=== PATIENT | male | born 1930 | race Caucasian/White ===

== ENCOUNTER 2016-05-12 12:59 | Inpatient (IN) | payer OTHER ==
[~2016-05-12] VITALS: Ht 177.8 cm; Wt 110.4 kg
[~2016-05-12 12:59] MED LIST: ACCUPRIL40 MG PO; AMLODIPINE BESYL5 MG PO; ASPIR 8181 M1 PO; ASPIR-LOW81 MG PO; ATORVASTATIN CA20 MG PO; AVODART0.5 MG PO; BACTRIM,SEPT1 TABLET PO; CARDURA2 M1 PO; CARVEDILOL12.5 MG PO; CARVEDILOL6.25 MG PO; CEFTIN500 MG PO; CELEXA10 MG PO; CITALOPRAM HBR10 MG PO; COREG6.25 M1 PO; DOXAZOSIN MESYLA2 MG PO; DULCOLAX10 MG PR; DUONEB 2.5-0.5 M3 ML IH; FERROUS SULFAT325 MG PO; FLOMAX0.4 MG PO; GLIPIZIDE5 MG PO; HYDROCHLOROTHIA25 MG PO; K-TAB10 MEQ PO; LASIX20 MG PO; LEVAQUIN500 MG PO; LIPITOR20 MG PO; LO-DOSE ASPIRIN81 M1 PO; METFORMIN HCL1000 MG PO; MILK OF MAGN PO; NOVOLOG 10100 UNITS/ SC; PROCRIT40000 UNI1 SC; QUINAPRIL HCL40 MG PO; SALINE MIST45 ML BOTH NARES; SILVADENE20 GM TP; TAMSULOSIN HCL0.4 MG PO; TYLENOL REGULA325 MG PO
[2016-05-12 14:23] LABS: HEMATOCRIT 31.8 % (38.0-50.0); MCH 32.3 PG (29.0-34.0); MCHC 32.1 G/DL (30.0-36.0); MCV 100.6 FL (86-99); MEAN PLAT.VOLUME 8.3 uM^3 (9.0-12.4); PLATELET COUNT 370 K/uL (156-360); RBC DIS.WIDTH-SD 55.3 % (39-53); RED BLOOD COUNT 3.16 M/uL (4.00-5.50); WHITE BLOOD COUNT 12.7 K/uL (4.1-10.2)
[2016-05-12 14:34] LABS: CARBON DIOXIDE (BICARBONATE) 15.9 MEQ/L (20-31)
[2016-05-12 14:41] LABS: CHLORIDE 112 mEq/L (99-109); POTASSIUM 5.9 mEq/L (3.7-5.4); SODIUM 135 mEq/L (136-147)
[2016-05-12 14:44] LABS: ANION GAP 9 MEQ/L (2-14)
[2016-05-12 14:46] LABS: GFR ESTIMATE (CALCULATED) 11 mL/min/
[2016-05-12 14:47] LABS: GLUCOSE 209 mg/dL (70-99); UREA NITROGEN (BUN) 94 mg/dL (9-23)
[2016-05-12] MEDS ORDERED: LANTUS 3 M100 UNITS1 SC (15:02)
[2016-05-12] MEDS ORDERED: BIOFREEZE TP (15:07)
[2016-05-12] MEDS ORDERED: TRIPLE PASTE TP (15:10)
[2016-05-12] MEDS ORDERED: NYSTOP60 GM TP ×2 (15:13→15:14)
[2016-05-12] MEDS ORDERED: COREG12.5 M1 PO (15:17)
[2016-05-12 16:22] LABS: ADD MIUA? YES; BILIRUBIN NEGATIVE; BLOOD MODERATE; COLOR YELLOW ((YELLOW)); GLUCOSE (STRIP) >=500; KETONES NEGATIVE; LEUKOCYTES MODERATE; NITRITE POSITIVE; PROTEIN (STRIP) 100; SPECIFIC GRAVITY 1.006 (1.000-1.030); UROBILINOGEN 0.2 MG/DL (0.2-1.0)
[2016-05-12 16:36] LABS: EPITHELIAL CELLS 1+ /HPF; MUCUS NONE SEEN /LPF; RED BLOOD CELLS 20-30 /HPF (0-5); UCUL ADDED? YES; WHITE BLOOD CELLS TNTC /HPF (0-5); WHITE BLOOD CELLS CLUMP MANY /HPF (0-5)
[2016-05-12 16:37] LABS: POINT-OF-CARE METER ID UU13113702
[2016-05-12 16:56] LABS: BACTERIA 2+ /HPF; CASTS NONE SEEN /LPF; CRYSTALS NONE SEEN
[2016-05-12 21:12] LABS: POINT-OF-CARE METER ID UU13113725
[2016-05-12 22:45] VITALS: BP 147/81
[2016-05-13 03:11] VITALS: BP 141/77
[2016-05-13 06:44] LABS: EOSINOPHIL (%) 0.8 % (0-5); EOSINOPHIL COUNT 0.1 K/uL (0-0.3); HEMATOCRIT 29.9 % (38.0-50.0); IMMATURE GRANULOCYTE (%) 0.3 % (0.0-0.7); INSTRUMENT ABS NEUTROPHIL CT 7.6 K/uL; LYMPHOCYTE COUNT 2.9 K/uL (1.0-2.8); MCH 31.7 PG (29.0-34.0); MCHC 31.8 G/DL (30.0-36.0); MCV 99.7 FL (86-99); MEAN PLAT.VOLUME 8.7 uM^3 (9.0-12.4); MONOCYTE (%) 11.8 % (3-12); MONOCYTE COUNT 1.4 K/uL (0-0.8); NEUTROPHIL (%) 62.7 % (45-76); NEUTROPHIL COUNT 7.6 K/uL (1.8-6.4); PLATELET COUNT 362 K/uL (156-360); RBC DIS.WIDTH-CV 15.1 % (11.8-14.6); RBC DIS.WIDTH-SD 54.4 % (39-53)
[2016-05-13 07:05] LABS: ANION GAP 9 MEQ/L (2-14); CHLORIDE 114 MEQ/L (99-109); GFR ESTIMATE (CALCULATED) 11 mL/min/; POTASSIUM 5.2 MEQ/L (3.7-5.4); SAMPLE HEMOLYSIS CHECK 0; SAMPLE ICTERIC CHECK 0; SAMPLE LIPEMIA CHECK 0; SODIUM 138 MEQ/L (136-147); UREA NITROGEN (BUN) 85 mg/dL (9-23); URIC ACID 5.4 mg/dL (3.1-9.2)
[2016-05-13 07:12] LABS: GLUCOSE 85 mg/dL (70-99)
[2016-05-13 07:20] VITALS: BP 154/73
[2016-05-13 10:42] VITALS: BP 130/72
[2016-05-13 19:07] VITALS: BP 137/85
[2016-05-13 21:21] LABS: POINT-OF-CARE METER ID UU13113725
[2016-05-13 23:07] VITALS: BP 142/79
[2016-05-14 03:24] VITALS: BP 129/77
[2016-05-14 07:23] VITALS: BP 143/71
[2016-05-14 11:38] LABS: POINT-OF-CARE METER ID UU13113725
[2016-05-14 12:14] LABS: ANION GAP 10 MEQ/L (2-14); CHLORIDE 109 MEQ/L (99-109); GFR ESTIMATE (CALCULATED) 13 mL/min/; SAMPLE HEMOLYSIS CHECK 0; SAMPLE ICTERIC CHECK 0; SAMPLE LIPEMIA CHECK 0; SODIUM 139 MEQ/L (136-147); UREA NITROGEN (BUN) 81 mg/dL (9-23)
[2016-05-14 12:15] LABS: GLUCOSE 176 mg/dL (70-99); POTASSIUM 3.9 MEQ/L (3.7-5.4)
[2016-05-14 12:47] VITALS: BP 132/63
[2016-05-14 16:11] LABS: POINT-OF-CARE METER ID UU13113725
[2016-05-14 16:16] VITALS: BP 152/69
[2016-05-14 19:17] VITALS: BP 138/84
[2016-05-14 21:22] LABS: POINT-OF-CARE METER ID UU13113725
[2016-05-14 23:02] VITALS: BP 130/60
[2016-05-15 03:35] VITALS: BP 141/72
[2016-05-15 06:43] LABS: ANION GAP 11 MEQ/L (2-14); CHLORIDE 111 MEQ/L (99-109); GFR ESTIMATE (CALCULATED) 12 mL/min/; GLUCOSE 122 mg/dL (70-99); POTASSIUM 3.7 MEQ/L (3.7-5.4); SAMPLE HEMOLYSIS CHECK 0; SAMPLE ICTERIC CHECK 0; SAMPLE LIPEMIA CHECK 0; SODIUM 142 MEQ/L (136-147); UREA NITROGEN (BUN) 82 mg/dL (9-23)
[2016-05-15 06:56] LABS: POINT-OF-CARE METER ID UU13113725
[2016-05-15 07:39] VITALS: BP 138/69
[2016-05-15 12:03] LABS: POINT-OF-CARE METER ID UU13113725
[2016-05-15 13:23] LABS: HBSG INDEX 0.28
[2016-05-15 13:24] LABS: ANTI-HEPATITIS A VIRUS (IGM) Nonreactive; HPCA INDEX 0.32
[2016-05-15 13:25] LABS: ANTI-HEPATITIS B CORE (IGM) Nonreactive; HBC IgM INDEX 0.05
[2016-05-15 15:56] LABS: POINT-OF-CARE METER ID UU13113725
[2016-05-15 17:06] VITALS: BP 129/67
[2016-05-15 18:58] VITALS: BP 144/78
[2016-05-15 20:49] LABS: POINT-OF-CARE METER ID UU13113725
[2016-05-15 23:09] VITALS: BP 138/70
[2016-05-16 03:57] VITALS: BP 147/65
[2016-05-16 06:30] LABS: POINT-OF-CARE METER ID UU13113725
[2016-05-16 07:13] LABS: EOSINOPHIL (%) 3.3 % (0-5); EOSINOPHIL COUNT 0.4 K/uL (0-0.3); IMMATURE GRANULOCYTE (%) 0.2 % (0.0-0.7); INSTRUMENT ABS NEUTROPHIL CT 6.7 K/uL; LYMPHOCYTE COUNT 3.1 K/uL (1.0-2.8); MCH 31.7 PG (29.0-34.0); MCHC 31.8 G/DL (30.0-36.0); MCV 99.6 FL (86-99); MEAN PLAT.VOLUME 9.1 uM^3 (9.0-12.4); NEUTROPHIL (%) 59.5 % (45-76); NEUTROPHIL COUNT 6.7 K/uL (1.8-6.4); PLATELET COUNT 288 K/uL (156-360); RBC DIS.WIDTH-CV 14.9 % (11.8-14.6); RBC DIS.WIDTH-SD 54.4 % (39-53); RED BLOOD COUNT 2.81 M/uL (4.00-5.50); WHITE BLOOD COUNT 11.3 K/uL (4.1-10.2)
[2016-05-16 07:40] LABS: ANION GAP 10 MEQ/L (2-14); CHLORIDE 114 MEQ/L (99-109); GFR ESTIMATE (CALCULATED) 12 mL/min/; GLUCOSE 129 mg/dL (70-99); POTASSIUM 3.7 MEQ/L (3.7-5.4); SAMPLE HEMOLYSIS CHECK 0; SAMPLE ICTERIC CHECK 0; SAMPLE LIPEMIA CHECK 0; SODIUM 143 MEQ/L (136-147); UREA NITROGEN (BUN) 75 mg/dL (9-23)
[2016-05-16 08:30] VITALS: BP 160/72
[2016-05-16 11:24] LABS: POINT-OF-CARE METER ID UU13113725
[2016-05-16 16:45] LABS: POINT-OF-CARE METER ID UU13113725
[2016-05-16 16:50] VITALS: BP 156/72
[2016-05-16 19:45] VITALS: BP 144/73
[2016-05-16 23:31] VITALS: BP 131/66
[2016-05-17 03:21] VITALS: BP 139/60
[2016-05-17 06:25] LABS: ANION GAP 11 MEQ/L (2-14); CHLORIDE 113 MEQ/L (99-109); GFR ESTIMATE (CALCULATED) 13 mL/min/; GLUCOSE 132 mg/dL (70-99); POTASSIUM 3.4 MEQ/L (3.7-5.4); SAMPLE HEMOLYSIS CHECK 0; SAMPLE ICTERIC CHECK 0; SAMPLE LIPEMIA CHECK 0; SODIUM 141 MEQ/L (136-147); UREA NITROGEN (BUN) 75 mg/dL (9-23)
[2016-05-17 07:39] VITALS: BP 151/76
[2016-05-17 12:00] VITALS: BP 140/75
[2016-05-17 17:56] VITALS: BP 130/80
[2016-05-17 19:16] VITALS: BP 150/72
[2016-05-17 21:36] LABS: POINT-OF-CARE METER ID UU13113725
[2016-05-17 23:03] VITALS: BP 148/77
[2016-05-18] VITALS (7 sets, daily range): BP systolic 117–170; BP diastolic 65–84
[2016-05-18 06:57] LABS: EOSINOPHIL COUNT 0.4 K/uL (0-0.3); HEMATOCRIT 28.6 % (38.0-50.0); IMMATURE GRANULOCYTE (%) 0.3 % (0.0-0.7); INSTRUMENT ABS NEUTROPHIL CT 7.6 K/uL; LYMPHOCYTE COUNT 3.9 K/uL (1.0-2.8); MCHC 31.5 G/DL (30.0-36.0); MCV 101.8 FL (86-99); MEAN PLAT.VOLUME 9.2 uM^3 (9.0-12.4); MONOCYTE (%) 7.3 % (3-12); MONOCYTE COUNT 0.9 K/uL (0-0.8); NEUTROPHIL COUNT 7.6 K/uL (1.8-6.4); PLATELET COUNT 238 K/uL (156-360); RBC DIS.WIDTH-CV 14.8 % (11.8-14.6); RBC DIS.WIDTH-SD 55.5 % (39-53); RED BLOOD COUNT 2.81 M/uL (4.00-5.50); WHITE BLOOD COUNT 12.8 K/uL (4.1-10.2)
[2016-05-18 07:31] LABS: ANION GAP 9 MEQ/L (2-14); CHLORIDE 114 MEQ/L (99-109); GFR ESTIMATE (CALCULATED) 14 mL/min/; GLUCOSE 126 mg/dL (70-99); SAMPLE HEMOLYSIS CHECK 0; SAMPLE ICTERIC CHECK 0; SAMPLE LIPEMIA CHECK 0; SODIUM 144 MEQ/L (136-147); UREA NITROGEN (BUN) 79 mg/dL (9-23)
[2016-05-18 07:32] LABS: POTASSIUM 4.2 MEQ/L (3.7-5.4)
[2016-05-18 21:17] LABS: POINT-OF-CARE METER ID UU13113725
[2016-05-19 03:15] VITALS: BP 166/74
[2016-05-19 06:11] LABS: POINT-OF-CARE METER ID UU13113725
[2016-05-19 08:07] VITALS: BP 166/80
[2016-05-19 10:01] LABS: CHLORIDE 110 mEq/L (99-109); POTASSIUM 3.9 mEq/L (3.7-5.4); SODIUM 139 mEq/L (136-147)
[2016-05-19 10:04] LABS: ANION GAP 11 MEQ/L (2-14)
[2016-05-19 10:06] LABS: GFR ESTIMATE (CALCULATED) 14 mL/min/
[2016-05-19 10:07] LABS: UREA NITROGEN (BUN) 77 mg/dL (9-23)
[2016-05-19 10:09] LABS: GLUCOSE 244 mg/dL (70-99)
[2016-05-19 11:52] VITALS: BP 144/72
[2016-05-19 15:57] VITALS: BP 170/100
[2016-05-19 16:03] LABS: POINT-OF-CARE METER ID UU13113725
[2016-05-19 19:21] VITALS: BP 179/84
[2016-05-19 21:07] LABS: POINT-OF-CARE METER ID UU13113725
[2016-05-19 23:15] VITALS: BP 166/83
[2016-05-20 05:36] LABS: POINT-OF-CARE METER ID UU13113725
[2016-05-20 07:35] LABS: ANION GAP 8 MEQ/L (2-14); CHLORIDE 111 MEQ/L (99-109); GFR ESTIMATE (CALCULATED) 15 mL/min/; GLUCOSE 132 mg/dL (70-99); POTASSIUM 3.6 MEQ/L (3.7-5.4); SAMPLE HEMOLYSIS CHECK 0; SAMPLE ICTERIC CHECK 0; SAMPLE LIPEMIA CHECK 0; SODIUM 140 MEQ/L (136-147); UREA NITROGEN (BUN) 72 mg/dL (9-23)
[2016-05-20 08:42] VITALS: BP 143/81
[2016-05-20 12:04] VITALS: BP 152/79
[2016-05-20 16:15] VITALS: BP 158/87
[2016-05-20 19:48] VITALS: BP 179/84
[2016-05-20 23:12] VITALS: BP 179/69
[2016-05-21 03:43] VITALS: BP 129/72
[2016-05-21 07:26] VITALS: BP 145/68
[2016-05-21 07:27] LABS: ANION GAP 8 MEQ/L (2-14); CHLORIDE 112 MEQ/L (99-109); GFR ESTIMATE (CALCULATED) 15 mL/min/; GLUCOSE 145 mg/dL (70-99); POTASSIUM 3.6 MEQ/L (3.7-5.4); SAMPLE HEMOLYSIS CHECK 0; SAMPLE ICTERIC CHECK 0; SAMPLE LIPEMIA CHECK 0; SODIUM 141 MEQ/L (136-147); UREA NITROGEN (BUN) 73 mg/dL (9-23)
[2016-05-21 11:02] VITALS: BP 138/64
[2016-05-21] MEDS ORDERED: DOXYCYCLINE HY100 M3 PO (11:42)
[2016-05-21] MEDS ORDERED: CIPROFLOXACIN500 M1 PO (11:42)
[2016-05-21] MEDS ORDERED: APRESOLINE25 MG PO (11:43)
[2016-05-21] MEDS ORDERED: BICITRA SOLUTI473 ML PO (11:43)
[2016-05-21] MEDS ORDERED: NOVOLOG PE100 UNITS/ SC (11:44)
== END 2016-05-21 14:11 | DRG 683 ==
LOC: EME 12:59 → EDOF 15:19 → 5EAST 15:19
PROVIDERS: Emergency Medicine; Family Medicine; Internal Medicine Nephrology
DX: N17.9 Acute kidney failure, unspecified (principal); E87.4 Mixed disorder of acid-base balance; N39.0 Urinary tract infection, site not specified; C91.10 Chronic lymphocytic leukemia of B-cell type not having achieved remission; N13.8 Other obstructive and reflux uropathy; E87.5 Hyperkalemia; E11.22 Type 2 diabetes mellitus with diabetic chronic kidney disease; B95.62 Methicillin resistant Staphylococcus aureus infection as the cause of diseases classified elsewhere; I12.9 Hypertensive chronic kidney disease with stage 1 through stage 4 chronic kidney disease, or unspecified chronic kidney disease; B96.4 Proteus (mirabilis) (morganii) as the cause of diseases classified elsewhere; N13.30 Unspecified hydronephrosis; D63.1 Anemia in chronic kidney disease; N18.4 Chronic kidney disease, stage 4 (severe); E78.5 Hyperlipidemia, unspecified; N40.1 Benign prostatic hyperplasia with lower urinary tract symptoms; R33.9 Retention of urine, unspecified; N28.1 Cyst of kidney, acquired; M48.00 Spinal stenosis, site unspecified; R31.0 Gross hematuria; R26.2 Difficulty in walking, not elsewhere classified; R53.1 Weakness; Z86.73 Personal history of transient ischemic attack (TIA), and cerebral infarction without residual deficits; Z87.01 Personal history of pneumonia (recurrent); Z87.440 Personal history of urinary (tract) infections; Z87.891 Personal history of nicotine dependence
CPT/HCPCS: 71010; 71020; 76770; 80048; 80048 91; 80074; 81003; 82803; 82948; 83605; 83735; 83880; 84100; 84550; 85025; 85027; 87077; 87086; 87147; 87186; 93005; 94799; 97530 GP; 99281; 99285; J0692; J1815; J7050

== ENCOUNTER 2016-06-09 06:37 | Day surgery (SDC) | payer OTHER ==
[~2016-06-09] VITALS: Ht 170.2 cm; Wt 112.5 kg
[~2016-06-09 06:37] MED LIST changes: +APRESOLINE25 MG PO; +BICITRA SOLUTI473 ML PO; +BIOFREEZE TP; +CIPROFLOXACIN500 M1 PO; +COREG12.5 M1 PO; +DOXYCYCLINE HY100 M3 PO; +ERGOCALCIF50000 UNIT PO; +LANTUS 3 M100 UNITS1 SC; +LASIX80 MG PO; +NOVOLOG PE100 UNITS/ SC; +NYSTOP60 GM TP; +TRIPLE PASTE TP
[2016-06-09 07:35] LABS: POINT-OF-CARE METER ID UU13113696
== END 2016-06-09 10:45 | disposition home or self-care (01) ==
LOC: CATH 06:37
PROVIDERS: Surgery
PROC: B543ZZA Ultrasonography of Right Jugular Veins, Guidance (ICD-10-PCS; principal; 2016-06-09)
PROC: B2141ZZ Fluoroscopy of Right Heart using Low Osmolar Contrast (ICD-10-PCS; principal; 2016-06-09)
PROC: 02HV33Z Insertion of Infusion Device into Superior Vena Cava, Percutaneous Approach (ICD-10-PCS; principal; 2016-06-09)
DX: I12.0 Hypertensive chronic kidney disease with stage 5 chronic kidney disease or end stage renal disease (principal); N18.6 End stage renal disease; E11.22 Type 2 diabetes mellitus with diabetic chronic kidney disease; Z79.4 Long term (current) use of insulin; Z85.6 Personal history of leukemia
CPT/HCPCS: 82948; C1750; C1894; J0690; J1644; J2250; J3010; S0020

== ENCOUNTER 2016-07-18 11:13 | Day surgery (SDC) | payer OTHER ==
[2016-07-18 12:11] LABS: POINT-OF-CARE METER ID UU13113696
[2016-07-18 14:09] LABS: METH RESISTANT S AUREUS PCR POSITIVE (NEGATIVE)
[2016-07-18 14:13] LABS: PROBE CHECK PASS
== END 2016-07-18 14:33 | disposition home or self-care (01) ==
LOC: CATH 11:13
PROVIDERS: Surgery
DX: T82.514A Breakdown (mechanical) of infusion catheter, initial encounter (principal); N19 Unspecified kidney failure; Z99.2 Dependence on renal dialysis; Y84.8 Other medical procedures as the cause of abnormal reaction of the patient, or of later complication, without mention of misadventure at the time of the procedure
CPT/HCPCS: 82948; 87081; 87641; C1750; C1894; J0690; J1644; J2250; J3010; S0020

== ENCOUNTER → 2016-08-08 | Day surgery (SDC) | payer OTHER ==
[~2016-08-08] VITALS: Ht 177.8 cm; Wt 107.5 kg
[~2016-08-08] MED LIST changes: +DIALYVITE 3,001 EACH PO; +FERRIC CITRATE210 MG PO; +NYATA15 GM TP; +PROAMATINE5 MG PO; +VITAMIN D22000 UNIT PO; +[UNRECOGNIZED DRUG - OTHER] TP
[2016-08-08 06:15] LABS: HEMATOCRIT 30.7 % (38.0-50.0); MCH 31.8 PG (29.0-34.0); MCHC 32.2 G/DL (30.0-36.0); MCV 98.7 FL (86-99); MEAN PLAT.VOLUME 9.5 uM^3 (9.0-12.4); PLATELET COUNT 289 K/uL (156-360); RBC DIS.WIDTH-CV 16.5 % (11.8-14.6); RBC DIS.WIDTH-SD 59.7 % (39-53); RED BLOOD COUNT 3.11 M/uL (4.00-5.50)
[2016-08-08 06:41] LABS: ANION GAP 6 MEQ/L (2-14); CHLORIDE 89 MEQ/L (99-109); SAMPLE HEMOLYSIS CHECK 0; SAMPLE ICTERIC CHECK 0; SAMPLE LIPEMIA CHECK 0; SODIUM 133 MEQ/L (136-147)
[2016-08-08 06:47] LABS: GFR ESTIMATE (CALCULATED) 16 mL/min/; GLUCOSE 92 mg/dL (70-99); UREA NITROGEN (BUN) 25 mg/dL (9-23)
[2016-08-08 06:59] VITALS: BP 117/72
[2016-08-08 07:20] LABS: METH RESISTANT S AUREUS PCR POSITIVE (NEGATIVE)
[2016-08-08 07:22] LABS: PROBE CHECK PASS
== END ==
LOC: SDC 05:23
PROVIDERS: Surgery
PROC: 031809D Bypass Left Brachial Artery to Upper Arm Vein with Autologous Venous Tissue, Open Approach (ICD-10-PCS; principal; 2016-08-08)
PROC: 05BF0ZZ Excision of Left Cephalic Vein, Open Approach (ICD-10-PCS; principal; 2016-08-08)
DX: T82.41XA Breakdown (mechanical) of vascular dialysis catheter, initial encounter (principal); I12.0 Hypertensive chronic kidney disease with stage 5 chronic kidney disease or end stage renal disease; E11.22 Type 2 diabetes mellitus with diabetic chronic kidney disease; N18.6 End stage renal disease; Z99.2 Dependence on renal dialysis; Z79.4 Long term (current) use of insulin; Z99.3 Dependence on wheelchair
CPT/HCPCS: 80048; 85027; 87641; 93005; J0690; J1644; J2250; J2405; J2720; J3010

== ENCOUNTER → 2016-08-22 | Outpatient (CLI) | payer OTHER | END | disposition home or self-care (01) | LOC: EKG 13:00 | DX: I50.20 Unspecified systolic (congestive) heart failure (principal); I05.1 Rheumatic mitral insufficiency; I70.0 Atherosclerosis of aorta; I06.0 Rheumatic aortic stenosis; I77.819 Aortic ectasia, unspecified site; I31.3 Pericardial effusion (noninflammatory); I52 Other heart disorders in diseases classified elsewhere; Z98.890 Other specified postprocedural states | CPT/HCPCS: 93306 ==

== ENCOUNTER 2016-10-02 15:18 | Emergency (ER) | payer OTHER ==
[~2016-10-02] VITALS: Ht 177.8 cm; Wt 100.2 kg
[2016-10-02 16:02] LABS: HEMATOCRIT 28.7 % (38.0-50.0); MCHC 33.1 G/DL (30.0-36.0); MCV 96.6 FL (86-99); MEAN PLAT.VOLUME 8.9 uM^3 (9.0-12.4); PLATELET COUNT 243 K/uL (156-360); RBC DIS.WIDTH-CV 15.3 % (11.8-14.6); RBC DIS.WIDTH-SD 54.6 % (39-53); RED BLOOD COUNT 2.97 M/uL (4.00-5.50); WHITE BLOOD COUNT 17.5 K/uL (4.1-10.2)
[2016-10-02 16:09] LABS: INTER. NORMALIZED RATIO 1.3; PROTHROMBIN TIME 14.1 SEC (10.2-12.9)
[2016-10-02 16:11] LABS: CHLORIDE 96 mEq/L (99-109); POTASSIUM 4.2 mEq/L (3.7-5.4); PTT 53.9 SEC (25-37); SODIUM 134 mEq/L (136-147)
[2016-10-02 16:13] LABS: GLUCOSE 202 mg/dL (70-99)
[2016-10-02 16:14] LABS: ANION GAP 8 MEQ/L (2-14)
[2016-10-02 16:17] LABS: GFR ESTIMATE (CALCULATED) 13 mL/min/
[2016-10-02 16:18] LABS: UREA NITROGEN (BUN) 39 mg/dL (9-23)
[2016-10-02 16:22] LABS: TROP-I INTERPRETATION NEGATIVE; TROPONIN-I 0.11 ng/mL (0.0-0.30)
[2016-10-02 19:58] VITALS: BP 116/84
[2016-10-03] MEDS ORDERED: FUROSEMIDE80 MG PO (10:29)
[2016-10-03] MEDS ORDERED: OMEPRAZOLE20 M2 PO (10:30)
[2016-10-03] MEDS ORDERED: ZINC OXIDE56.7 GM TP (10:34)
== END 2016-10-02 21:00 ==
LOC: EME 15:18
PROVIDERS: Emergency Medicine
DX: I48.91 Unspecified atrial fibrillation (principal); E86.0 Dehydration; I12.9 Hypertensive chronic kidney disease with stage 1 through stage 4 chronic kidney disease, or unspecified chronic kidney disease; N18.9 Chronic kidney disease, unspecified; Z99.2 Dependence on renal dialysis; E11.9 Type 2 diabetes mellitus without complications; Z79.4 Long term (current) use of insulin; Z87.891 Personal history of nicotine dependence
CPT/HCPCS: 71020; 80048; 83605; 84484; 85027; 85610; 85730; 93005; 99281; 99285; J7030

== ENCOUNTER 2016-10-06 09:29 | Day surgery (SDC) | payer OTHER ==
[~2016-10-06] VITALS: Ht 170.2 cm; Wt 99.3 kg
[~2016-10-06 09:29] MED LIST changes: +FUROSEMIDE80 MG PO; +OMEPRAZOLE20 M2 PO; +ZINC OXIDE56.7 GM TP
[2016-10-06 10:13] VITALS: BP 142/71
[2016-10-06 10:27] LABS: HEMATOCRIT 30.2 % (38.0-50.0); MCH 32.3 PG (29.0-34.0); MCHC 33.1 G/DL (30.0-36.0); MCV 97.4 FL (86-99); MEAN PLAT.VOLUME 9.3 uM^3 (9.0-12.4); PLATELET COUNT 311 K/uL (156-360); RBC DIS.WIDTH-SD 53.2 % (39-53); WHITE BLOOD COUNT 19.6 K/uL (4.1-10.2)
[2016-10-06 10:42] LABS: ANION GAP 8 MEQ/L (2-14); CHLORIDE 93 MEQ/L (99-109); POTASSIUM 4.6 MEQ/L (3.7-5.4); SAMPLE HEMOLYSIS CHECK 0; SAMPLE ICTERIC CHECK 0; SAMPLE LIPEMIA CHECK 0; SODIUM 131 MEQ/L (136-147)
[2016-10-06 10:48] LABS: GFR ESTIMATE (CALCULATED) 9 mL/min/; GLUCOSE 101 mg/dL (70-99); UREA NITROGEN (BUN) 67 mg/dL (9-23)
[2016-10-06 11:13] LABS: METH RESISTANT S AUREUS PCR POSITIVE (NEGATIVE)
[2016-10-06 11:15] LABS: PROBE CHECK PASS
[2016-10-06 13:37] LABS: POINT-OF-CARE METER ID UU13113675
[2016-10-06 14:25] VITALS: BP 128/94
[2016-10-06 15:40] VITALS: BP 120/60
== END 2016-10-06 15:46 ==
LOC: SDC
PROVIDERS: Surgery
DX: I12.0 Hypertensive chronic kidney disease with stage 5 chronic kidney disease or end stage renal disease (principal); E11.22 Type 2 diabetes mellitus with diabetic chronic kidney disease; N18.6 End stage renal disease; Z99.2 Dependence on renal dialysis; E07.9 Disorder of thyroid, unspecified; C95.90 Leukemia, unspecified not having achieved remission; M48.00 Spinal stenosis, site unspecified; Z79.4 Long term (current) use of insulin; Z99.3 Dependence on wheelchair
CPT/HCPCS: 80048; 82948; 85027; 87641; 93005; J0131; J0690; J1644; J2405; J2720; J3010

== ENCOUNTER 2016-10-09 12:12 | Inpatient (IN) | payer OTHER ==
[~2016-10-09] VITALS: Ht 177.8 cm; Wt 96.4 kg
[2016-10-09 14:39] LABS: BASOPHIL COUNT 0.1 K/uL (0-0.1); EOSINOPHIL (%) 0.1 % (0-5); IMMATURE GRANULOCYTE COUNT 0.4 K/uL; INSTRUMENT ABS NEUTROPHIL CT 31.2 K/uL; LYMPHOCYTE COUNT 2.2 K/uL (1.0-2.8); MEAN PLAT.VOLUME 9.5 uM^3 (9.0-12.4); MONOCYTE COUNT 1.8 K/uL (0-0.8); NEUTROPHIL (%) 87.5 % (45-76); NEUTROPHIL COUNT 31.2 K/uL (1.8-6.4); PLATELET COUNT 230 K/uL (156-360)
[2016-10-09 14:50] LABS: ANION GAP 10 MEQ/L (2-14); CHLORIDE 93 MEQ/L (99-109); POTASSIUM 4.9 MEQ/L (3.7-5.4); SAMPLE HEMOLYSIS CHECK 0; SAMPLE ICTERIC CHECK 0; SAMPLE LIPEMIA CHECK 0; SODIUM 131 MEQ/L (136-147)
[2016-10-09 14:56] LABS: GFR ESTIMATE (CALCULATED) 8 mL/min/; GLUCOSE 237 mg/dL (70-99); UREA NITROGEN (BUN) 69 mg/dL (9-23)
[2016-10-09 15:32] LABS: HEMATOCRIT 26.1 % (38.0-50.0); MCH 33.2 PG (29.0-34.0); MCHC 33.3 G/DL (30.0-36.0); MCV 99.6 FL (86-99); RBC DIS.WIDTH-CV 15.2 % (11.8-14.6); RBC DIS.WIDTH-SD 54.6 % (39-53); RED BLOOD COUNT 2.62 M/uL (4.00-5.50); WHITE BLOOD COUNT 35.8 K/uL (4.1-10.2)
[2016-10-09 19:20] VITALS: BP 113/70
[2016-10-09 22:25] LABS: POINT-OF-CARE METER ID UU13113725
[2016-10-10 00:50] VITALS: BP 118/63
[2016-10-10 06:24] LABS: HEMATOCRIT 26.3 % (38.0-50.0); MCH 31.7 PG (29.0-34.0); MCHC 31.9 G/DL (30.0-36.0); MCV 99.2 FL (86-99); MEAN PLAT.VOLUME 9.4 uM^3 (9.0-12.4); PLATELET COUNT 213 K/uL (156-360); RBC DIS.WIDTH-CV 15.4 % (11.8-14.6); RBC DIS.WIDTH-SD 54.6 % (39-53); RED BLOOD COUNT 2.65 M/uL (4.00-5.50); WHITE BLOOD COUNT 21.7 K/uL (4.1-10.2)
[2016-10-10 06:53] LABS: ANION GAP 11 MEQ/L (2-14); CHLORIDE 96 MEQ/L (99-109); GFR ESTIMATE (CALCULATED) 11 mL/min/; GLUCOSE 180 mg/dL (70-99); POTASSIUM 4.4 MEQ/L (3.7-5.4); SAMPLE HEMOLYSIS CHECK 0; SAMPLE ICTERIC CHECK 0; SAMPLE LIPEMIA CHECK 0; SODIUM 136 MEQ/L (136-147); UREA NITROGEN (BUN) 51 mg/dL (9-23)
[2016-10-10 07:34] VITALS: BP 118/74
[2016-10-10 09:31] LABS: HBSG INDEX 0.14
[2016-10-10 09:32] LABS: HEPATITIS B SURFACE ANTIBODY Nonreactive
[2016-10-10 11:26] LABS: POINT-OF-CARE METER ID UU13113725
[2016-10-10 11:35] VITALS: BP 119/70
[2016-10-10 14:25] LABS: ADD MIUA? YES; BILIRUBIN NEGATIVE; BLOOD MODERATE; COLOR YELLOW ((YELLOW)); GLUCOSE (STRIP) >=500; KETONES NEGATIVE; LEUKOCYTES MODERATE; NITRITE NEGATIVE; PROTEIN (STRIP) 100; SPECIFIC GRAVITY 1.006 (1.000-1.030); UROBILINOGEN 0.2 MG/DL (0.2-1.0)
[2016-10-10 14:46] LABS: WHITE BLOOD CELLS TNTC /HPF (0-5)
[2016-10-10 15:19] VITALS: BP 100/60
[2016-10-10] MEDS ORDERED: MIDODRINE HCL2.5 MG PO (16:09)
[2016-10-10] MEDS ORDERED: MIDODRINE HCL10 MG PO ×2 (16:16)
[2016-10-10] MEDS ORDERED: SILVADENE20 GM TP (16:32)
[2016-10-10] MEDS ORDERED: NORCO 5/3251 TABLET PO ×2 (16:36→16:37)
[2016-10-10 19:25] VITALS: BP 120/85
[2016-10-10 21:21] LABS: POINT-OF-CARE METER ID UU13113725
[2016-10-10 23:38] VITALS: BP 107/63
[2016-10-11 03:20] VITALS: BP 140/80
[2016-10-11 07:56] LABS: HEMATOCRIT 25.8 % (38.0-50.0); MCH 31.9 PG (29.0-34.0); MCHC 32.6 G/DL (30.0-36.0); MCV 98.1 FL (86-99); MEAN PLAT.VOLUME 9.5 uM^3 (9.0-12.4); PLATELET COUNT 208 K/uL (156-360); RBC DIS.WIDTH-CV 15.5 % (11.8-14.6); RBC DIS.WIDTH-SD 53.3 % (39-53); RED BLOOD COUNT 2.63 M/uL (4.00-5.50); WHITE BLOOD COUNT 18.3 K/uL (4.1-10.2)
[2016-10-11 08:06] LABS: ANION GAP 10 MEQ/L (2-14); CHLORIDE 95 MEQ/L (99-109); POTASSIUM 4.3 MEQ/L (3.7-5.4); SAMPLE HEMOLYSIS CHECK 0; SAMPLE ICTERIC CHECK 0; SAMPLE LIPEMIA CHECK 0; SODIUM 132 MEQ/L (136-147)
[2016-10-11 08:12] LABS: GFR ESTIMATE (CALCULATED) 9 mL/min/; GLUCOSE 259 mg/dL (70-99); UREA NITROGEN (BUN) 66 mg/dL (9-23)
[2016-10-11 11:45] VITALS: BP 110/68
[2016-10-11 12:08] LABS: POINT-OF-CARE METER ID UU13113725
[2016-10-11 18:38] VITALS: BP 121/66
[2016-10-11 19:30] VITALS: BP 119/73
[2016-10-11 21:27] LABS: POINT-OF-CARE METER ID UU13113725
[2016-10-11 23:11] VITALS: BP 115/65
[2016-10-12 02:54] VITALS: BP 113/68
[2016-10-12 06:10] LABS: POINT-OF-CARE METER ID UU13113725
[2016-10-12 07:05] VITALS: BP 114/64
[2016-10-12 11:00] VITALS: BP 118/68
[2016-10-12 11:57] LABS: POINT-OF-CARE METER ID UU13113725
[2016-10-12 15:00] VITALS: BP 110/60
[2016-10-12 16:50] LABS: POINT-OF-CARE METER ID UU13113725
[2016-10-12 20:08] VITALS: BP 100/70
[2016-10-12 21:23] LABS: POINT-OF-CARE METER ID UU13113725
[2016-10-12 23:56] VITALS: BP 108/69
[2016-10-13] VITALS (7 sets, daily range): BP systolic 102–134; BP diastolic 68–75
[2016-10-13 06:10] LABS: POINT-OF-CARE METER ID UU13113725
[2016-10-13 12:27] LABS: POINT-OF-CARE METER ID UU13113725
[2016-10-13 16:57] LABS: POINT-OF-CARE METER ID UU13113725
[2016-10-13 21:26] LABS: POINT-OF-CARE METER ID UU13113725
[2016-10-14 04:34] VITALS: BP 110/68
[2016-10-14 05:52] LABS: POINT-OF-CARE METER ID UU13113725
[2016-10-14 08:29] LABS: EOSINOPHIL (%) 0.9 % (0-5); EOSINOPHIL COUNT 0.2 K/uL (0-0.3); HEMATOCRIT 25.9 % (38.0-50.0); IMMATURE GRANULOCYTE (%) 1.2 % (0.0-0.7); IMMATURE GRANULOCYTE COUNT 0.2 K/uL; INSTRUMENT ABS NEUTROPHIL CT 12.8 K/uL; MCH 32.1 PG (29.0-34.0); MCHC 32.8 G/DL (30.0-36.0); MCV 97.7 FL (86-99); MEAN PLAT.VOLUME 9.9 uM^3 (9.0-12.4); MONOCYTE (%) 5.5 % (3-12); MONOCYTE COUNT 0.9 K/uL (0-0.8); NEUTROPHIL (%) 74.7 % (45-76); NEUTROPHIL COUNT 12.8 K/uL (1.8-6.4); PLATELET COUNT 228 K/uL (156-360); RBC DIS.WIDTH-CV 15.9 % (11.8-14.6); RBC DIS.WIDTH-SD 54.9 % (39-53); RED BLOOD COUNT 2.65 M/uL (4.00-5.50); WHITE BLOOD COUNT 17.2 K/uL (4.1-10.2)
[2016-10-14 08:36] VITALS: BP 122/72
[2016-10-14 08:43] LABS: ANION GAP 12 MEQ/L (2-14); CHLORIDE 96 MEQ/L (99-109); POTASSIUM 3.8 MEQ/L (3.7-5.4); SAMPLE HEMOLYSIS CHECK 0; SAMPLE ICTERIC CHECK 0; SAMPLE LIPEMIA CHECK 0; SODIUM 132 MEQ/L (136-147)
[2016-10-14 08:55] LABS: GLUCOSE 249 mg/dL (70-99); UREA NITROGEN (BUN) 65 mg/dL (9-23)
[2016-10-14 09:02] LABS: GFR ESTIMATE (CALCULATED) 7 mL/min/
[2016-10-14 11:35] VITALS: BP 140/68
[2016-10-14 12:37] LABS: POINT-OF-CARE METER ID UU13113725
[2016-10-14 15:52] LABS: POINT-OF-CARE METER ID UU13113725
[2016-10-14 17:11] VITALS: BP 120/80
[2016-10-14 19:16] VITALS: BP 110/56
[2016-10-14 20:59] LABS: POINT-OF-CARE METER ID UU13113725
[2016-10-14 23:15] VITALS: BP 118/62
[2016-10-15 03:45] VITALS: BP 112/71
[2016-10-15 06:20] LABS: POINT-OF-CARE METER ID UU13113725
[2016-10-15 06:41] LABS: EOSINOPHIL (%) 0.9 % (0-5); EOSINOPHIL COUNT 0.2 K/uL (0-0.3); HEMATOCRIT 26.2 % (38.0-50.0); IMMATURE GRANULOCYTE (%) 0.8 % (0.0-0.7); IMMATURE GRANULOCYTE COUNT 0.1 K/uL; INSTRUMENT ABS NEUTROPHIL CT 11.3 K/uL; LYMPHOCYTE COUNT 3.9 K/uL (1.0-2.8); MCHC 33.2 G/DL (30.0-36.0); MCV 99.2 FL (86-99); MEAN PLAT.VOLUME 9.8 uM^3 (9.0-12.4); MONOCYTE (%) 6.5 % (3-12); MONOCYTE COUNT 1.1 K/uL (0-0.8); NEUTROPHIL (%) 68.2 % (45-76); NEUTROPHIL COUNT 11.3 K/uL (1.8-6.4); PLATELET COUNT 227 K/uL (156-360); RBC DIS.WIDTH-SD 56.7 % (39-53); RED BLOOD COUNT 2.64 M/uL (4.00-5.50); WHITE BLOOD COUNT 16.5 K/uL (4.1-10.2)
[2016-10-15 08:05] VITALS: BP 117/78
[2016-10-15 11:22] LABS: POINT-OF-CARE METER ID UU13113725
[2016-10-15] MEDS ORDERED: NORCO 5/3251 TABLET PO (12:59)
[2016-10-15 15:39] VITALS: BP 118/74
[2016-10-15 16:18] LABS: POINT-OF-CARE METER ID UU13113725
== END 2016-10-15 18:03 | DRG 871 ==
LOC: EME 12:12 → ENRESERV 13:26 → EDOF 13:54 → 5EAST 13:54 → ENRESERV 14:21 → 5EAST 18:25
PROVIDERS: Emergency Medicine; Family Medicine; Internal Medicine Nephrology
DX: A41.9 Sepsis, unspecified organism (principal); J18.9 Pneumonia, unspecified organism; N18.6 End stage renal disease; I12.0 Hypertensive chronic kidney disease with stage 5 chronic kidney disease or end stage renal disease; N39.0 Urinary tract infection, site not specified; C91.10 Chronic lymphocytic leukemia of B-cell type not having achieved remission; I48.91 Unspecified atrial fibrillation; R26.9 Unspecified abnormalities of gait and mobility; B96.5 Pseudomonas (aeruginosa) (mallei) (pseudomallei) as the cause of diseases classified elsewhere; M48.00 Spinal stenosis, site unspecified; D63.1 Anemia in chronic kidney disease; R00.0 Tachycardia, unspecified; N40.1 Benign prostatic hyperplasia with lower urinary tract symptoms; R33.8 Other retention of urine; E11.22 Type 2 diabetes mellitus with diabetic chronic kidney disease; I95.9 Hypotension, unspecified; G62.9 Polyneuropathy, unspecified; Z91.81 History of falling; Z87.891 Personal history of nicotine dependence; Z87.440 Personal history of urinary (tract) infections; Z99.2 Dependence on renal dialysis; Z79.4 Long term (current) use of insulin
CPT/HCPCS: 80048; 80069; 80202; 81003; 82948; 83605; 85025; 85025 91; 85027; 86706; 87040; 87077; 87086; 87186; 87340; 87641; 87801; 93005; 99281; 99284; J0131; J0690; J0881; J1644; J1815; J2405; J2543; J2720; J3010; J3370; J7050; P9047

== ENCOUNTER 2016-12-30 10:26 | Day surgery (SDC) | payer OTHER ==
[~2016-12-30] VITALS: Ht 177.8 cm; Wt 102.0 kg
[~2016-12-30 10:26] MED LIST changes: +CILOSTAZOL100 MG PO; +DIGOXIN125 MCG PO; +ELIQUIS2.5 MG PO; +KEFLEX500 MG PO; +MIDODRINE HCL10 MG PO; +MIDODRINE HCL2.5 MG PO; +NIZORAL 2% CREA15 GM TP; +NORCO 5/3251 TABLET PO; +PROTEIN LIQUID PO; -VITAMIN D22000 UNIT PO; +VITAMIN D32000 UNI1 PO; +ZINC TP; +[UNRECOGNIZED DRUG - OTHER] PO; +[UNRECOGNIZED DRUG - REMARK] PO; +[UNRECOGNIZED DRUG - SUPPLY] TP
[2016-12-30 11:25] LABS: POINT-OF-CARE METER ID UU14174212
[2016-12-30 11:27] VITALS: BP 163/73
[2016-12-30 12:17] LABS: METH RESISTANT S AUREUS PCR NEGATIVE (NEGATIVE)
[2016-12-30 12:18] LABS: PROBE CHECK PASS; SPECIMEN PROCESSING CONTROL PASS
[2016-12-30 13:30] LABS: POINT-OF-CARE METER ID UU13113675
[2016-12-30 13:55] VITALS: BP 135/76
== END 2016-12-30 15:37 ==
LOC: SDC 10:26
PROVIDERS: Podiatrist Foot & Ankle Surgery
PROC: 0Y6S0Z0 Detachment at Left 2nd Toe, Complete, Open Approach (ICD-10-PCS; principal; 2016-12-30)
DX: E11.621 Type 2 diabetes mellitus with foot ulcer (principal); E11.69 Type 2 diabetes mellitus with other specified complication; E11.42 Type 2 diabetes mellitus with diabetic polyneuropathy; M86.9 Osteomyelitis, unspecified; L03.032 Cellulitis of left toe; L97.529 Non-pressure chronic ulcer of other part of left foot with unspecified severity; I48.91 Unspecified atrial fibrillation; I12.0 Hypertensive chronic kidney disease with stage 5 chronic kidney disease or end stage renal disease; E11.22 Type 2 diabetes mellitus with diabetic chronic kidney disease; N18.6 End stage renal disease; Z99.2 Dependence on renal dialysis; Z79.01 Long term (current) use of anticoagulants
CPT/HCPCS: 82948; 87641; 88305; 88311; J3010; S0020

== ENCOUNTER 2017-01-24 13:08 | Observation (INO) | payer OTHER ==
[~2017-01-24] VITALS: Ht 177.8 cm; Wt 105.2 kg
[2017-01-24 13:33] LABS: EOSINOPHIL (%) 0.6 % (0-5); EOSINOPHIL COUNT 0.1 K/uL (0-0.3); IMMATURE GRANULOCYTE (%) 0.5 % (0.0-0.7); IMMATURE GRANULOCYTE COUNT 0.1 K/uL; INSTRUMENT ABS NEUTROPHIL CT 9.7 K/uL; LYMPHOCYTE COUNT 2.1 K/uL (1.0-2.8); MCH 31.9 PG (29.0-34.0); MCHC 32.9 G/DL (30.0-36.0); MCV 97.2 FL (86-99); MEAN PLAT.VOLUME 8.6 uM^3 (9.0-12.4); MONOCYTE (%) 9.7 % (3-12); MONOCYTE COUNT 1.3 K/uL (0-0.8); NEUTROPHIL (%) 73.4 % (45-76); NEUTROPHIL COUNT 9.7 K/uL (1.8-6.4); PLATELET COUNT 290 K/uL (156-360); RBC DIS.WIDTH-CV 16.3 % (11.8-14.6); RBC DIS.WIDTH-SD 58.4 % (39-53); WHITE BLOOD COUNT 13.2 K/uL (4.1-10.2)
[2017-01-24 13:39] LABS: INTER. NORMALIZED RATIO 1.3; PROTHROMBIN TIME 14.8 SEC (10.2-12.9)
[2017-01-24 13:42] LABS: CHLORIDE 97 mEq/L (99-109); POTASSIUM 4.2 mEq/L (3.7-5.4); PTT 33.3 SEC (25-37); SODIUM 132 mEq/L (136-147)
[2017-01-24 13:44] LABS: GLUCOSE 186 mg/dL (70-99)
[2017-01-24 13:46] LABS: ANION GAP 9 MEQ/L (2-14)
[2017-01-24 13:48] LABS: GFR ESTIMATE (CALCULATED) 12 mL/min/ (58.99-99999)
[2017-01-24 13:49] LABS: UREA NITROGEN (BUN) 58 mg/dL (9-23)
[2017-01-24 13:54] LABS: TROP-I INTERPRETATION NEGATIVE; TROPONIN-I 0.11 ng/mL (0.0-0.30)
[2017-01-24] MEDS ORDERED: BACID1 CAP PO (15:25)
[2017-01-24] MEDS ORDERED: NITROSTAT0.4 MG SL (15:27)
[2017-01-24] MEDS ORDERED: SILTUSSIN DM C473 ML PO (15:28)
[2017-01-24] MEDS ORDERED: DOLOTRANZ 2.5%1 EACH TP (15:31)
[2017-01-24 19:03] LABS: TROP-I INTERPRETATION NEGATIVE; TROPONIN-I 0.09 ng/mL (0.0-0.30)
[2017-01-24 19:35] VITALS: BP 140/65
[2017-01-24 22:14] LABS: POINT-OF-CARE METER ID UU13113831
[2017-01-24 23:59] VITALS: BP 178/80
[2017-01-25 04:00] VITALS: BP 124/74
[2017-01-25 04:30] LABS: TROP-I INTERPRETATION NEGATIVE; TROPONIN-I 0.09 ng/mL (0.0-0.30)
[2017-01-25 06:11] LABS: METH RESISTANT S AUREUS PCR NEGATIVE (NEGATIVE)
[2017-01-25 06:18] LABS: PROBE CHECK PASS; SPECIMEN PROCESSING CONTROL PASS
[2017-01-25 07:34] VITALS: BP 153/73
[2017-01-25 08:48] LABS: POINT-OF-CARE METER ID UU14162513
[2017-01-25 10:47] LABS: HBSG INDEX 0.21
[2017-01-25 11:41] VITALS: BP 147/77
[2017-01-25 12:24] LABS: POINT-OF-CARE METER ID UU14162513
[2017-01-25] MEDS ORDERED: CARVEDILOL12.5 MG PO (12:43)
[2017-01-25] MEDS ORDERED: CEPHALEXIN500 MG PO (12:44)
== END 2017-01-25 15:14 ==
LOC: EME 13:08 → EDOF 14:29 → ENRESERV 14:37 → EDOF 14:43 → ENRESERV 14:48 → 5WEST 19:19
PROVIDERS: Emergency Medicine; Family Medicine; Internal Medicine Nephrology
PROC: 5A1D70Z Performance of Urinary Filtration, Intermittent, Less than 6 Hours Per Day (ICD-10-PCS; principal; 2017-01-24)
DX: R07.89 Other chest pain (principal); I48.1 Persistent atrial fibrillation; I12.9 Hypertensive chronic kidney disease with stage 1 through stage 4 chronic kidney disease, or unspecified chronic kidney disease; E11.22 Type 2 diabetes mellitus with diabetic chronic kidney disease; N18.6 End stage renal disease; Z99.2 Dependence on renal dialysis; E11.40 Type 2 diabetes mellitus with diabetic neuropathy, unspecified; I42.9 Cardiomyopathy, unspecified; I35.0 Nonrheumatic aortic (valve) stenosis; Z74.01 Bed confinement status; E87.1 Hypo-osmolality and hyponatremia; C91.11 Chronic lymphocytic leukemia of B-cell type in remission; Z87.440 Personal history of urinary (tract) infections; Z87.01 Personal history of pneumonia (recurrent); Z79.4 Long term (current) use of insulin; Z79.01 Long term (current) use of anticoagulants
CPT/HCPCS: 71010; 80048; 82948; 84484; 85025; 85610; 85730; 87340; 87641; 93005; 99281; 99285; G0257; G0378

== ENCOUNTER 2017-02-25 04:49 | Inpatient (IN) | payer OTHER ==
[~2017-02-25] VITALS: Ht 177.8 cm; Wt 107.3 kg
[~2017-02-25 04:49] MED LIST changes: +BACID1 CAP PO; +CEPHALEXIN500 MG PO; +COUGH SYRU100 MG/5 M PO; +DOLOTRANZ 2.5%1 EACH TP; +NITROSTAT0.4 MG SL
[2017-02-25 05:29] LABS: BASE EXCESS 1.3 mEq/L (-3 to +3); BICARBONATE 28.3 mEq/L (22-26); CARBOXY HGB 1.1 % (0-5); COMMENTS - BLOOD GASES C+A+; DEVICE NIV; FI02 100 %; METHEMOGLOBIN 1.1 % (0-1.5); MODE SPONT; PCO2 55 mm Hg (35-45); PEEP 5 CM/H20; PO2 511 mm Hg (80-100); PRES. SUPPORT 18 CM/H2O; SITE RR; TOTAL RESP RATE 15 resp/min; pH 7.32 (7.35-7.45)
[2017-02-25 05:35] LABS: BASOPHIL (%) 0.2 % (0-1); EOSINOPHIL (%) 0.1 % (0-5); HEMATOCRIT 34.6 % (38.0-50.0); HEMOGLOBIN 11.4 G/DL (12.5-16.6); IMMATURE GRANULOCYTE (%) 0.9 % (0.0-0.7); LYMPHOCYTE (%) 9.7 % (15-42); LYMPHOCYTE COUNT 1.2 K/uL (1.0-2.8); MCH 32.7 PG (29.0-34.0); MCHC 32.9 G/DL (30.0-36.0); MCV 99.1 FL (86-99); MONOCYTE (%) 11.5 % (3-12); MONOCYTE COUNT 1.5 K/uL (0-0.8); NEUTROPHIL (%) 77.6 % (45-76); NEUTROPHIL COUNT 9.8 K/uL (1.8-6.4); PLATELET COUNT 278 K/uL (156-360); RBC DIS.WIDTH-CV 17.6 % (11.8-14.6); RBC DIS.WIDTH-SD 63.7 % (39-53); RED BLOOD COUNT 3.49 M/uL (4.00-5.50); WHITE BLOOD COUNT 12.7 K/uL (4.1-10.2)
[2017-02-25 05:47] LABS: CHLORIDE 96 mEq/L (99-109); SODIUM 132 mEq/L (136-147)
[2017-02-25 05:49] LABS: GLUCOSE 157 mg/dL (70-99)
[2017-02-25 05:51] LABS: INTER. NORMALIZED RATIO 1.2
[2017-02-25 05:52] LABS: CREATININE 5.8 mg/dL (0.6-1.3); GFR ESTIMATE (CALCULATED) 10 mL/min/ (58.99-99999)
[2017-02-25 05:53] LABS: UREA NITROGEN (BUN) 84 mg/dL (9-23)
[2017-02-25 05:54] LABS: PTT 31.3 SEC (25-37)
[2017-02-25 05:57] LABS: TROP-I INTERPRETATION NEGATIVE; TROPONIN-I 0.08 ng/mL (0.0-0.30)
[2017-02-25] MEDS ORDERED: COREG12.5 M1 PO ×2 (15:54→15:56)
[2017-02-25] MEDS ORDERED: DUONEB 2.5-0.5 M3 ML AEROSOL (16:06)
[2017-02-25 17:35] VITALS: BP 168/84
[2017-02-25 19:33] VITALS: BP 143/67
[2017-02-25 23:17] VITALS: BP 127/68
[2017-02-26 04:33] VITALS: BP 121/58
[2017-02-26 08:42] LABS: ALBUMIN 3.1 G/DL (3.2-4.8); CHLORIDE 95 MEQ/L (99-109); POTASSIUM 4.4 MEQ/L (3.7-5.4); SODIUM 132 MEQ/L (136-147)
[2017-02-26 08:47] LABS: GFR ESTIMATE (CALCULATED) 14 mL/min/ (58.99-99999); GLUCOSE 152 mg/dL (70-99); PHOSPHORUS 4.5 mg/dL (2.5-4.9); UREA NITROGEN (BUN) 56 mg/dL (9-23)
[2017-02-26 08:52] LABS: CREATININE 4.3 MG/DL (0.6-1.3)
[2017-02-26 08:58] LABS: BASOPHIL (%) 0.3 % (0-1); EOSINOPHIL (%) 0.5 % (0-5); EOSINOPHIL COUNT 0.1 K/uL (0-0.3); IMMATURE GRANULOCYTE (%) 0.6 % (0.0-0.7); LYMPHOCYTE (%) 14.1 % (15-42); LYMPHOCYTE COUNT 1.5 K/uL (1.0-2.8); MCH 31.6 PG (29.0-34.0); MCHC 31.4 G/DL (30.0-36.0); MCV 100.6 FL (86-99); MONOCYTE (%) 11.8 % (3-12); MONOCYTE COUNT 1.3 K/uL (0-0.8); NEUTROPHIL (%) 72.7 % (45-76); NEUTROPHIL COUNT 7.8 K/uL (1.8-6.4); PLATELET COUNT 251 K/uL (156-360); RBC DIS.WIDTH-CV 17.7 % (11.8-14.6); RBC DIS.WIDTH-SD 64.9 % (39-53); RED BLOOD COUNT 3.48 M/uL (4.00-5.50); WHITE BLOOD COUNT 10.7 K/uL (4.1-10.2)
[2017-02-26 12:30] VITALS: BP 149/66
[2017-02-26 16:16] VITALS: BP 116/57
[2017-02-26 20:15] VITALS: BP 125/64
[2017-02-27 00:30] VITALS: BP 107/55
[2017-02-27 05:44] VITALS: BP 113/58
[2017-02-27 09:11] VITALS: BP 117/68
[2017-02-27 11:28] VITALS: BP 131/72
[2017-02-27 15:49] VITALS: BP 146/81
[2017-02-27 21:31] VITALS: BP 124/73
[2017-02-28] VITALS (7 sets, daily range): BP systolic 118–159; BP diastolic 55–75
[2017-02-28 05:02] LABS: BASOPHIL (%) 0.2 % (0-1); EOSINOPHIL (%) 0.5 % (0-5); EOSINOPHIL COUNT 0.1 K/uL (0-0.3); HEMATOCRIT 33.4 % (38.0-50.0); IMMATURE GRANULOCYTE (%) 0.4 % (0.0-0.7); LYMPHOCYTE (%) 18.7 % (15-42); LYMPHOCYTE COUNT 2.3 K/uL (1.0-2.8); MCH 32.7 PG (29.0-34.0); MCHC 32.9 G/DL (30.0-36.0); MCV 99.4 FL (86-99); MONOCYTE (%) 10.1 % (3-12); MONOCYTE COUNT 1.3 K/uL (0-0.8); NEUTROPHIL (%) 70.1 % (45-76); NEUTROPHIL COUNT 8.6 K/uL (1.8-6.4); PLATELET COUNT 257 K/uL (156-360); RBC DIS.WIDTH-CV 17.2 % (11.8-14.6); RBC DIS.WIDTH-SD 62.9 % (39-53); RED BLOOD COUNT 3.36 M/uL (4.00-5.50); WHITE BLOOD COUNT 12.3 K/uL (4.1-10.2)
[2017-02-28 05:18] LABS: CHLORIDE 97 mEq/L (99-109)
[2017-02-28 05:19] LABS: POTASSIUM 3.6 mEq/L (3.7-5.4); SODIUM 132 mEq/L (136-147)
[2017-02-28 05:20] LABS: GLUCOSE 145 mg/dL (70-99)
[2017-02-28 05:24] LABS: CREATININE 4.2 mg/dL (0.6-1.3); GFR ESTIMATE (CALCULATED) 14 mL/min/ (58.99-99999)
[2017-02-28 05:25] LABS: UREA NITROGEN (BUN) 53 mg/dL (9-23)
[2017-03-01 04:23] VITALS: BP 126/58
[2017-03-01 08:03] VITALS: BP 148/65
[2017-03-01 16:15] VITALS: BP 121/56
[2017-03-02] VITALS: BP 150/72
[2017-03-02 09:13] VITALS: BP 119/61
[2017-03-02 17:10] VITALS: BP 135/61
[2017-03-02 21:54] VITALS: BP 136/68
[2017-03-02 23:21] VITALS: BP 122/66
[2017-03-03 06:15] LABS: BASOPHIL (%) 0.1 % (0-1); EOSINOPHIL (%) 0.5 % (0-5); EOSINOPHIL COUNT 0.1 K/uL (0-0.3); HEMOGLOBIN 10.7 G/DL (12.5-16.6); IMMATURE GRANULOCYTE (%) 0.6 % (0.0-0.7); LYMPHOCYTE (%) 18.3 % (15-42); LYMPHOCYTE COUNT 2.7 K/uL (1.0-2.8); MCH 31.9 PG (29.0-34.0); MCHC 32.4 G/DL (30.0-36.0); MCV 98.5 FL (86-99); MONOCYTE (%) 6.8 % (3-12); NEUTROPHIL (%) 73.7 % (45-76); NEUTROPHIL COUNT 10.9 K/uL (1.8-6.4); PLATELET COUNT 296 K/uL (156-360); RBC DIS.WIDTH-CV 16.9 % (11.8-14.6); RBC DIS.WIDTH-SD 61.7 % (39-53); RED BLOOD COUNT 3.35 M/uL (4.00-5.50); WHITE BLOOD COUNT 14.8 K/uL (4.1-10.2)
[2017-03-03 06:50] LABS: CHLORIDE 97 MEQ/L (99-109); GFR ESTIMATE (CALCULATED) 10 mL/min/ (58.99-99999); GLUCOSE 69 mg/dL (70-99); POTASSIUM 3.6 MEQ/L (3.7-5.4); SODIUM 132 MEQ/L (136-147)
[2017-03-03 06:52] LABS: CREATININE 5.9 MG/DL (0.6-1.3); UREA NITROGEN (BUN) 80 mg/dL (9-23)
[2017-03-03 06:54] LABS: C DIFF TOXIN POSITIVE (NEGATIVE)
[2017-03-03 12:46] VITALS: BP 123/58
[2017-03-03 17:06] VITALS: BP 138/70
[2017-03-03 23:30] VITALS: BP 114/55
[2017-03-04 04:35] LABS: BASOPHIL (%) 0.1 % (0-1); EOSINOPHIL (%) 0.3 % (0-5); HEMATOCRIT 30.4 % (38.0-50.0); HEMOGLOBIN 10.1 G/DL (12.5-16.6); IMMATURE GRANULOCYTE (%) 0.5 % (0.0-0.7); LYMPHOCYTE (%) 16.8 % (15-42); LYMPHOCYTE COUNT 2.2 K/uL (1.0-2.8); MCH 32.6 PG (29.0-34.0); MCHC 33.2 G/DL (30.0-36.0); MCV 98.1 FL (86-99); MONOCYTE (%) 7.1 % (3-12); MONOCYTE COUNT 0.9 K/uL (0-0.8); NEUTROPHIL (%) 75.2 % (45-76); NEUTROPHIL COUNT 9.8 K/uL (1.8-6.4); PLATELET COUNT 285 K/uL (156-360); RBC DIS.WIDTH-CV 17.2 % (11.8-14.6); RBC DIS.WIDTH-SD 61.6 % (39-53); WHITE BLOOD COUNT 13.1 K/uL (4.1-10.2)
[2017-03-04 07:58] VITALS: BP 103/62
[2017-03-04 15:51] VITALS: BP 121/85
[2017-03-04 23:43] VITALS: BP 123/62
[2017-03-05 09:14] LABS: ALBUMIN 2.7 G/DL (3.2-4.8); BASOPHIL (%) 0.2 % (0-1); CHLORIDE 100 MEQ/L (99-109); EOSINOPHIL (%) 0.5 % (0-5); EOSINOPHIL COUNT 0.1 K/uL (0-0.3); HEMATOCRIT 31.8 % (38.0-50.0); HEMOGLOBIN 10.4 G/DL (12.5-16.6); IMMATURE GRANULOCYTE (%) 0.5 % (0.0-0.7); LYMPHOCYTE (%) 17.6 % (15-42); MCH 32.1 PG (29.0-34.0); MCHC 32.7 G/DL (30.0-36.0); MCV 98.1 FL (86-99); MONOCYTE (%) 9.5 % (3-12); MONOCYTE COUNT 1.1 K/uL (0-0.8); NEUTROPHIL (%) 71.7 % (45-76); NEUTROPHIL COUNT 8.2 K/uL (1.8-6.4); PLATELET COUNT 324 K/uL (156-360); POTASSIUM 3.8 MEQ/L (3.7-5.4); RBC DIS.WIDTH-CV 17.1 % (11.8-14.6); RBC DIS.WIDTH-SD 61.8 % (39-53); RED BLOOD COUNT 3.24 M/uL (4.00-5.50); SODIUM 135 MEQ/L (136-147); WHITE BLOOD COUNT 11.5 K/uL (4.1-10.2)
[2017-03-05 09:21] LABS: GFR ESTIMATE (CALCULATED) 12 mL/min/ (58.99-99999); PHOSPHORUS 4.4 mg/dL (2.5-4.9); UREA NITROGEN (BUN) 72 mg/dL (9-23)
[2017-03-05 09:25] LABS: CREATININE 4.8 MG/DL (0.6-1.3); GLUCOSE 159 mg/dL (70-99)
[2017-03-05 15:25] VITALS: BP 130/59
[2017-03-05 23:44] VITALS: BP 94/52
[2017-03-06 07:19] VITALS: BP 100/50
[2017-03-06 15:45] VITALS: BP 100/58
[2017-03-06 21:31] VITALS: BP 102/57
[2017-03-06 23:49] VITALS: BP 140/63
[2017-03-07 08:06] LABS: BASOPHIL (%) 0.2 % (0-1); EOSINOPHIL COUNT 0.1 K/uL (0-0.3); HEMATOCRIT 31.7 % (38.0-50.0); HEMOGLOBIN 10.6 G/DL (12.5-16.6); IMMATURE GRANULOCYTE (%) 0.6 % (0.0-0.7); LYMPHOCYTE (%) 22.2 % (15-42); LYMPHOCYTE COUNT 2.8 K/uL (1.0-2.8); MCH 32.6 PG (29.0-34.0); MCHC 33.4 G/DL (30.0-36.0); MCV 97.5 FL (86-99); MONOCYTE (%) 9.1 % (3-12); MONOCYTE COUNT 1.1 K/uL (0-0.8); NEUTROPHIL (%) 66.9 % (45-76); NEUTROPHIL COUNT 8.4 K/uL (1.8-6.4); PLATELET COUNT 324 K/uL (156-360); RBC DIS.WIDTH-CV 17.2 % (11.8-14.6); RBC DIS.WIDTH-SD 61.8 % (39-53); RED BLOOD COUNT 3.25 M/uL (4.00-5.50); WHITE BLOOD COUNT 12.6 K/uL (4.1-10.2)
[2017-03-07 08:25] LABS: ALBUMIN 2.6 G/DL (3.2-4.8); CHLORIDE 100 MEQ/L (99-109); CREATININE 4.6 MG/DL (0.6-1.3); GFR ESTIMATE (CALCULATED) 13 mL/min/ (58.99-99999); GLUCOSE 164 mg/dL (70-99); PHOSPHORUS 3.6 mg/dL (2.5-4.9); POTASSIUM 3.7 MEQ/L (3.7-5.4); SODIUM 134 MEQ/L (136-147); UREA NITROGEN (BUN) 61 mg/dL (9-23)
[2017-03-07] MEDS ORDERED: METRONIDAZOLE500 MG PO (13:06)
[2017-03-07] MEDS ORDERED: FUROSEMIDE80 MG PO ×2 (13:07)
[2017-03-07] MEDS ORDERED: ACIDOPHILUS LA1 EACH PO (13:08)
[2017-03-08] MEDS ORDERED: KEFLEX500 MG PO (22:23)
== END 2017-03-07 15:26 | DRG 291 ==
LOC: EME → EDBD 04:49 → EDOF 06:15 → 4EAST 06:15 → ENRESERV 07:02 → EDOF 07:13 → ENRESERV 14:32 → EDOF 14:52 → ENRESERV 15:22 → 4EAST 16:24 → ENRESERV 02-28 09:13 → 4SOUTH 02-28 22:34
PROVIDERS: Emergency Medicine; Family Medicine; Internal Medicine Nephrology
PROC: 5A1D70Z Performance of Urinary Filtration, Intermittent, Less than 6 Hours Per Day (ICD-10-PCS; principal; 2017-02-25)
PROC: 5A09357 Assistance with Respiratory Ventilation, Less than 24 Consecutive Hours, Continuous Positive Airway Pressure (ICD-10-PCS; principal; 2017-02-25)
DX: I13.2 Hypertensive heart and chronic kidney disease with heart failure and with stage 5 chronic kidney disease, or end stage renal disease (principal); I50.9 Heart failure, unspecified; E11.22 Type 2 diabetes mellitus with diabetic chronic kidney disease; N18.6 End stage renal disease; E87.2 Acidosis; A04.72 Enterocolitis due to Clostridium difficile, not specified as recurrent; E87.1 Hypo-osmolality and hyponatremia; L03.116 Cellulitis of left lower limb; J44.9 Chronic obstructive pulmonary disease, unspecified; D63.1 Anemia in chronic kidney disease; E11.42 Type 2 diabetes mellitus with diabetic polyneuropathy; I48.91 Unspecified atrial fibrillation; R13.10 Dysphagia, unspecified; I87.2 Venous insufficiency (chronic) (peripheral); L97.529 Non-pressure chronic ulcer of other part of left foot with unspecified severity; E66.9 Obesity, unspecified; Z79.4 Long term (current) use of insulin; Z99.2 Dependence on renal dialysis; Z85.6 Personal history of leukemia; Z87.891 Personal history of nicotine dependence; Z89.429 Acquired absence of other toe(s), unspecified side; Z91.15 Patient's noncompliance with renal dialysis; Z91.81 History of falling; Z79.01 Long term (current) use of anticoagulants; Z22.322 Carrier or suspected carrier of Methicillin resistant Staphylococcus aureus; Z68.32 Body mass index [BMI] 32.0-32.9, adult
CPT/HCPCS: 36600; 71045; 74230; 80048; 80069; 82803; 82948; 83605; 83880; 84484; 85025; 85610; 85730; 87040; 87493; 87641; 92610 GN; 93005; 94002; 94640; 94640 76; 94760; 94799; 99202; 99281; 99285; A6214; J1644; J1956

== ENCOUNTER 2017-03-08 18:29 | Emergency (ER) | payer OTHER ==
[~2017-03-08] VITALS: Ht 177.8 cm; Wt 73.3 kg
[~2017-03-08 18:29] MED LIST changes: +ACIDOPHILUS LA1 EACH PO; +DUONEB 2.5-0.5 M3 ML AEROSOL; +METRONIDAZOLE500 MG PO
[2017-03-08 19:52] LABS: BASOPHIL (%) 0.3 % (0-1); EOSINOPHIL (%) 0.9 % (0-5); EOSINOPHIL COUNT 0.1 K/uL (0-0.3); HEMATOCRIT 34.7 % (38.0-50.0); HEMOGLOBIN 11.5 G/DL (12.5-16.6); IMMATURE GRANULOCYTE (%) 0.3 % (0.0-0.7); LYMPHOCYTE (%) 21.2 % (15-42); LYMPHOCYTE COUNT 3.2 K/uL (1.0-2.8); MCH 32.7 PG (29.0-34.0); MCHC 33.1 G/DL (30.0-36.0); MCV 98.6 FL (86-99); MONOCYTE (%) 9.7 % (3-12); MONOCYTE COUNT 1.5 K/uL (0-0.8); NEUTROPHIL (%) 67.6 % (45-76); NEUTROPHIL COUNT 10.3 K/uL (1.8-6.4); PLATELET COUNT 334 K/uL (156-360); RBC DIS.WIDTH-CV 17.2 % (11.8-14.6); RBC DIS.WIDTH-SD 62.4 % (39-53); RED BLOOD COUNT 3.52 M/uL (4.00-5.50); WHITE BLOOD COUNT 15.2 K/uL (4.1-10.2)
[2017-03-08 19:56] LABS: CHLORIDE 100 mEq/L (99-109); POTASSIUM 4.1 mEq/L (3.7-5.4); SODIUM 135 mEq/L (136-147)
[2017-03-08 19:58] LABS: GLUCOSE 124 mg/dL (70-99)
[2017-03-08 20:02] LABS: CREATININE 4.2 mg/dL (0.6-1.3); GFR ESTIMATE (CALCULATED) 14 mL/min/ (58.99-99999)
[2017-03-08 20:03] LABS: UREA NITROGEN (BUN) 60 mg/dL (9-23)
[2017-03-08 20:05] LABS: CREATINE KINASE 19 IU/L (1-294)
[2017-03-08 20:09] LABS: TROP-I INTERPRETATION NEGATIVE; TROPONIN-I 0.08 ng/mL (0.0-0.30)
[2017-03-08 20:18] LABS: INTER. NORMALIZED RATIO 1.2
[2017-03-08 20:43] LABS: APPEARANCE TURBID ((CLEAR)); BILIRUBIN NEGATIVE; BLOOD MODERATE; COLOR AMBER ((YELLOW)); GLUCOSE (STRIP) >=500; KETONES NEGATIVE; LEUKOCYTES MODERATE; NITRITE NEGATIVE; PROTEIN (STRIP) 100; SPECIFIC GRAVITY 1.006 (1.000-1.030); UROBILINOGEN 0.2 MG/DL (0.2-1.0)
[2017-03-08 20:50] LABS: PTT 33.5 SEC (25-37)
[2017-03-08 20:58] LABS: EPITHELIAL CELLS 1+ /HPF; MUCUS NONE SEEN /LPF; WHITE BLOOD CELLS TNTC /HPF (0-5)
[2017-03-08 21:00] LABS: AMORPHOUS PHOSPHATE CRYSTALS 2+; BACTERIA 1+ /HPF; UCUL ADDED? YES
[2017-03-08] MEDS ORDERED: KEFLEX500 MG PO (22:23)
[2017-03-08 23:24] VITALS: BP 131/97
== END 2017-03-08 23:27 ==
LOC: EME 18:29
PROVIDERS: Emergency Medicine
DX: N39.0 Urinary tract infection, site not specified (principal); I13.0 Hypertensive heart and chronic kidney disease with heart failure and stage 1 through stage 4 chronic kidney disease, or unspecified chronic kidney disease; I50.9 Heart failure, unspecified; N18.9 Chronic kidney disease, unspecified; Z99.2 Dependence on renal dialysis; R29.6 Repeated falls; I48.91 Unspecified atrial fibrillation; Z87.891 Personal history of nicotine dependence; Z89.422 Acquired absence of other left toe(s)
CPT/HCPCS: 70450; 71045; 80048; 81003; 82550; 84484; 85025; 85610; 85730; 87040; 87086; 93005; 99281; 99284; J0696

== ENCOUNTER 2017-03-18 12:01 | Day surgery (SDC) | payer OTHER ==
[~2017-03-18] VITALS: Ht 172.7 cm; Wt 99.8 kg
== END 2017-03-18 15:25 | disposition home or self-care (01) ==
LOC: CATH 12:01
PROVIDERS: Surgery
DX: T82.41XA Breakdown (mechanical) of vascular dialysis catheter, initial encounter (principal); I12.0 Hypertensive chronic kidney disease with stage 5 chronic kidney disease or end stage renal disease; N18.6 End stage renal disease; Z99.2 Dependence on renal dialysis; E78.00 Pure hypercholesterolemia, unspecified; Z85.6 Personal history of leukemia
CPT/HCPCS: 82948; 87641; C1725; C1769; C1894; J1644; J2250; J3010; S0020

== ENCOUNTER 2017-08-28 11:50 | Inpatient (IN) | payer OTHER ==
[~2017-08-28] VITALS: Ht 182.9 cm; Wt 84.9 kg
[2017-08-28 13:22] LABS: BASOPHIL (%) 0.2 % (0-1); EOSINOPHIL (%) 0.4 % (0-5); EOSINOPHIL COUNT 0.1 K/uL (0-0.3); HEMATOCRIT 35.6 % (38.0-50.0); HEMOGLOBIN 11.6 G/DL (12.5-16.6); IMMATURE GRANULOCYTE (%) 0.4 % (0.0-0.7); LYMPHOCYTE (%) 11.8 % (15-42); LYMPHOCYTE COUNT 1.4 K/uL (1.0-2.8); MCH 34.9 PG (29.0-34.0); MCHC 32.6 G/DL (30.0-36.0); MCV 107.2 FL (86-99); MONOCYTE (%) 10.2 % (3-12); MONOCYTE COUNT 1.2 K/uL (0-0.8); NRBC (%) 0.2 /100 WBC (0-0); PLATELET COUNT 270 K/uL (156-360); RBC DIS.WIDTH-CV 14.7 % (11.8-14.6); RBC DIS.WIDTH-SD 58.5 % (39-53); RED BLOOD COUNT 3.32 M/uL (4.00-5.50); WHITE BLOOD COUNT 11.6 K/uL (4.1-10.2)
[2017-08-28 13:31] LABS: ALBUMIN 3.3 g/dL (3.2-4.8)
[2017-08-28 13:32] LABS: CHLORIDE 94 mEq/L (99-109); POTASSIUM 4.1 mEq/L (3.7-5.4); SODIUM 134 mEq/L (136-147)
[2017-08-28 13:34] LABS: GLUCOSE 122 mg/dL (70-99); TOTAL PROTEIN 7.5 g/dL (6.4-8.3)
[2017-08-28 13:36] LABS: TOTAL BILIRUBIN 0.4 mg/dL (0.0-1.0)
[2017-08-28 13:37] LABS: ALKALINE PHOSPHATASE 102 IU/L (3-129)
[2017-08-28 13:38] LABS: CREATININE 3.2 mg/dL (0.6-1.3); GFR ESTIMATE (CALCULATED) 20 mL/min/ (58.99-99999)
[2017-08-28 13:39] LABS: AST (GOT) 19 IU/L (2-34); UREA NITROGEN (BUN) 38 mg/dL (9-23)
[2017-08-28 13:41] LABS: ALT (GPT) 21 IU/L (3-49)
[2017-08-28 13:44] LABS: TROP-I INTERPRETATION NEGATIVE; TROPONIN-I 0.17 ng/mL (0.0-0.30)
[2017-08-28] MEDS ORDERED: LANTUS 3 M100 UNITS1 SC (13:46)
[2017-08-28] MEDS ORDERED: AUGMENTIN875 MG PO (13:48)
[2017-08-28 13:50] LABS: APPEARANCE TURBID ((CLEAR)); BILIRUBIN NEGATIVE; BLOOD SMALL; COLOR AMBER ((YELLOW)); GLUCOSE (STRIP) 50; KETONES NEGATIVE; LEUKOCYTES MODERATE; NITRITE NEGATIVE; PROTEIN (STRIP) 100; SPECIFIC GRAVITY 1.013 (1.000-1.030); UROBILINOGEN 0.2 MG/DL (0.2-1.0)
[2017-08-28 14:08] LABS: UCUL ADDED? YES; WHITE BLOOD CELLS TNTC /HPF (0-5)
[2017-08-28] MEDS ORDERED: DOXYCYCLINE HY100 MG PO (14:19)
[2017-08-28] MEDS ORDERED: FLORASTOR250 MG PO (14:19)
[2017-08-28] MEDS ORDERED: METOPROLOL SUCC50 MG PO (14:24)
[2017-08-28] MEDS ORDERED: VITAMIN D2000 UNIT PO (14:24)
[2017-08-28] MEDS ORDERED: SERTRALINE HCL25 MG PO (14:25)
[2017-08-28] MEDS ORDERED: LIDOCAINE-PRIL1 EACH TP (14:30)
[2017-08-28 19:04] LABS: TYPE OF FLUID PLEURAL
[2017-08-28 19:43] LABS: APPEARANCE BLOODY; BODY FLUID EOSINOPHILS 0 % (0-25); BODY FLUID RBC'S 70000 /MM^3 (0-100); BODY FLUID WBC'S 1105 /MM^3 (0-500); MONONUCLEAR WBC'S 96 %; POLYNUCLEAR WBC'S 4 % (0-25)
[2017-08-28 19:44] LABS: BODY FLUID GLUCOSE 116 MG/DL; BODY FLUID LDH 111 IU/L; BODY FLUID PROTEIN 3.5 G/DL
[2017-08-28 19:55] VITALS: BP 130/77
[2017-08-28 20:16] VITALS: BP 127/71
[2017-08-28 20:41] LABS: PCO2 61 mm Hg (35-45); PO2 56 mm Hg (80-100)
[2017-08-28 20:42] LABS: BASE EXCESS 2.3 mEq/L (-3 to +3); BICARBONATE 30 mEq/L (22-26); CARBOXY HGB 0.7 % (0-5); DEVICE MASK VENT; FI02 50 %; METHEMOGLOBIN 0.9 % (0-1.5); MODE NIV; PEEP 6 CM/H20; PRES. SUPPORT 12 CM/H2O; SITE LR; TOTAL RESP RATE 20 resp/min
[2017-08-28 21:01] VITALS: BP 119/64
[2017-08-28 22:02] VITALS: BP 134/74
[2017-08-28 23:01] VITALS: BP 138/81
[2017-08-29] VITALS (23 sets, daily range): BP systolic 107–143; BP diastolic 52–82
[2017-08-29 05:45] LABS: BASOPHIL (%) 0.1 % (0-1); EOSINOPHIL (%) 0.2 % (0-5); HEMATOCRIT 31.2 % (38.0-50.0); HEMOGLOBIN 10.3 G/DL (12.5-16.6); IMMATURE GRANULOCYTE (%) 0.3 % (0.0-0.7); LYMPHOCYTE (%) 7.5 % (15-42); MCH 34.9 PG (29.0-34.0); MCV 105.8 FL (86-99); MONOCYTE (%) 7.3 % (3-12); NEUTROPHIL (%) 84.6 % (45-76); NEUTROPHIL COUNT 11.4 K/uL (1.8-6.4); PLATELET COUNT 234 K/uL (156-360); RBC DIS.WIDTH-CV 14.6 % (11.8-14.6); RBC DIS.WIDTH-SD 56.3 % (39-53); RED BLOOD COUNT 2.95 M/uL (4.00-5.50); WHITE BLOOD COUNT 13.4 K/uL (4.1-10.2)
[2017-08-29 06:09] LABS: CHLORIDE 98 MEQ/L (99-109); GFR ESTIMATE (CALCULATED) 16 mL/min/ (58.99-99999); GLUCOSE 113 mg/dL (70-99); MAGNESIUM 2.1 mg/dl (1.3-2.7); PHOSPHORUS 5.3 mg/dL (2.5-4.9); POTASSIUM 4.3 MEQ/L (3.7-5.4); SODIUM 135 MEQ/L (136-147); UREA NITROGEN (BUN) 44 mg/dL (9-23)
[2017-08-29 06:16] LABS: CREATININE 3.8 MG/DL (0.6-1.3)
[2017-08-30] VITALS (13 sets, daily range): BP systolic 122–164; BP diastolic 54–87
[2017-08-30 05:41] LABS: BASOPHIL (%) 0.2 % (0-1); EOSINOPHIL (%) 0.5 % (0-5); EOSINOPHIL COUNT 0.1 K/uL (0-0.3); HEMATOCRIT 33.6 % (38.0-50.0); HEMOGLOBIN 11.1 G/DL (12.5-16.6); IMMATURE GRANULOCYTE (%) 0.4 % (0.0-0.7); LYMPHOCYTE (%) 11.8 % (15-42); LYMPHOCYTE COUNT 1.4 K/uL (1.0-2.8); MCH 34.9 PG (29.0-34.0); MCV 105.7 FL (86-99); MONOCYTE COUNT 1.2 K/uL (0-0.8); NEUTROPHIL (%) 77.1 % (45-76); NEUTROPHIL COUNT 9.3 K/uL (1.8-6.4); PLATELET COUNT 256 K/uL (156-360); RBC DIS.WIDTH-CV 14.6 % (11.8-14.6); RBC DIS.WIDTH-SD 56.8 % (39-53); RED BLOOD COUNT 3.18 M/uL (4.00-5.50); WHITE BLOOD COUNT 12.1 K/uL (4.1-10.2)
[2017-08-30 06:13] LABS: CHLORIDE 98 MEQ/L (99-109); GFR ESTIMATE (CALCULATED) 21 mL/min/ (58.99-99999); GLUCOSE 113 mg/dL (70-99); POTASSIUM 3.8 MEQ/L (3.7-5.4); SODIUM 135 MEQ/L (136-147); UREA NITROGEN (BUN) 33 mg/dL (9-23)
[2017-08-30 15:24] LABS: BODY FLUID PH 7.9 (())
[2017-08-31 00:11] VITALS: BP 144/66
[2017-08-31 03:32] VITALS: BP 138/60
[2017-08-31 06:54] LABS: BASOPHIL (%) 0.2 % (0-1); EOSINOPHIL (%) 0.3 % (0-5); HEMATOCRIT 36.2 % (38.0-50.0); HEMOGLOBIN 11.8 G/DL (12.5-16.6); IMMATURE GRANULOCYTE (%) 0.4 % (0.0-0.7); LYMPHOCYTE (%) 10.6 % (15-42); LYMPHOCYTE COUNT 1.4 K/uL (1.0-2.8); MCH 33.8 PG (29.0-34.0); MCHC 32.6 G/DL (30.0-36.0); MCV 103.7 FL (86-99); MONOCYTE (%) 9.6 % (3-12); MONOCYTE COUNT 1.3 K/uL (0-0.8); NEUTROPHIL (%) 78.9 % (45-76); NEUTROPHIL COUNT 10.7 K/uL (1.8-6.4); PLATELET COUNT 304 K/uL (156-360); RBC DIS.WIDTH-CV 14.5 % (11.8-14.6); RBC DIS.WIDTH-SD 55.3 % (39-53); RED BLOOD COUNT 3.49 M/uL (4.00-5.50); WHITE BLOOD COUNT 13.6 K/uL (4.1-10.2)
[2017-08-31 07:17] LABS: CHLORIDE 97 MEQ/L (99-109); GLUCOSE 136 mg/dL (70-99); POTASSIUM 3.8 MEQ/L (3.7-5.4); SODIUM 134 MEQ/L (136-147)
[2017-08-31 07:18] LABS: CREATININE 4.2 MG/DL (0.6-1.3); GFR ESTIMATE (CALCULATED) 14 mL/min/ (58.99-99999); UREA NITROGEN (BUN) 51 mg/dL (9-23); VANCOMYCIN, TROUGH 19.7 MCG/ML (10-20)
[2017-08-31 07:36] VITALS: BP 174/84
[2017-08-31 16:17] VITALS: BP 169/88
[2017-08-31 20:17] VITALS: BP 121/78
[2017-09-01 00:55] VITALS: BP 121/78
[2017-09-01 04:20] VITALS: BP 129/58
[2017-09-01 07:01] LABS: BASOPHIL (%) 0.1 % (0-1); EOSINOPHIL (%) 0.4 % (0-5); EOSINOPHIL COUNT 0.1 K/uL (0-0.3); HEMATOCRIT 33.8 % (38.0-50.0); IMMATURE GRANULOCYTE (%) 0.4 % (0.0-0.7); LYMPHOCYTE (%) 12.6 % (15-42); LYMPHOCYTE COUNT 1.5 K/uL (1.0-2.8); MCH 34.1 PG (29.0-34.0); MCHC 32.5 G/DL (30.0-36.0); MCV 104.6 FL (86-99); MONOCYTE (%) 8.1 % (3-12); NEUTROPHIL (%) 78.4 % (45-76); NEUTROPHIL COUNT 9.5 K/uL (1.8-6.4); PLATELET COUNT 295 K/uL (156-360); RBC DIS.WIDTH-CV 14.4 % (11.8-14.6); RBC DIS.WIDTH-SD 55.3 % (39-53); RED BLOOD COUNT 3.23 M/uL (4.00-5.50); WHITE BLOOD COUNT 12.2 K/uL (4.1-10.2)
[2017-09-01 07:25] LABS: CHLORIDE 101 MEQ/L (99-109); GFR ESTIMATE (CALCULATED) 18 mL/min/ (58.99-99999); GLUCOSE 132 mg/dL (70-99); POTASSIUM 3.1 MEQ/L (3.7-5.4); SODIUM 137 MEQ/L (136-147); UREA NITROGEN (BUN) 28 mg/dL (9-23)
[2017-09-01 07:29] LABS: CREATININE 3.4 MG/DL (0.6-1.3)
[2017-09-01 07:40] VITALS: BP 118/62
[2017-09-01 15:42] VITALS: BP 115/60
[2017-09-02 00:39] VITALS: BP 131/67
[2017-09-02 06:07] LABS: BASOPHIL (%) 0.2 % (0-1); EOSINOPHIL (%) 0.5 % (0-5); EOSINOPHIL COUNT 0.1 K/uL (0-0.3); HEMATOCRIT 34.3 % (38.0-50.0); HEMOGLOBIN 11.2 G/DL (12.5-16.6); IMMATURE GRANULOCYTE (%) 0.5 % (0.0-0.7); LYMPHOCYTE (%) 14.7 % (15-42); LYMPHOCYTE COUNT 1.7 K/uL (1.0-2.8); MCH 34.4 PG (29.0-34.0); MCHC 32.7 G/DL (30.0-36.0); MCV 105.2 FL (86-99); MONOCYTE (%) 8.6 % (3-12); NEUTROPHIL (%) 75.5 % (45-76); NEUTROPHIL COUNT 8.7 K/uL (1.8-6.4); PLATELET COUNT 293 K/uL (156-360); RBC DIS.WIDTH-CV 14.6 % (11.8-14.6); RBC DIS.WIDTH-SD 56.7 % (39-53); RED BLOOD COUNT 3.26 M/uL (4.00-5.50); WHITE BLOOD COUNT 11.6 K/uL (4.1-10.2)
[2017-09-02 08:05] VITALS: BP 112/66
[2017-09-02 16:51] VITALS: BP 116/57
[2017-09-03 00:03] VITALS: BP 114/58
[2017-09-03 07:54] VITALS: BP 112/55
[2017-09-03 09:15] LABS: HEMATOCRIT 34.9 % (38.0-50.0); HEMOGLOBIN 11.5 G/DL (12.5-16.6); MCH 34.3 PG (29.0-34.0); MCV 104.2 FL (86-99); NRBC (%) 0.2 /100 WBC (0-0); PLATELET COUNT 333 K/uL (156-360); RBC DIS.WIDTH-CV 14.5 % (11.8-14.6); RED BLOOD COUNT 3.35 M/uL (4.00-5.50); WHITE BLOOD COUNT 12.4 K/uL (4.1-10.2)
[2017-09-03 09:38] LABS: ALBUMIN 2.8 G/DL (3.2-4.8); CHLORIDE 101 MEQ/L (99-109); GFR ESTIMATE (CALCULATED) 13 mL/min/ (58.99-99999); GLUCOSE 187 mg/dL (70-99); PHOSPHORUS 4.7 mg/dL (2.5-4.9); POTASSIUM 2.6 MEQ/L (3.7-5.4); SODIUM 135 MEQ/L (136-147); UREA NITROGEN (BUN) 34 mg/dL (9-23)
[2017-09-03 10:03] LABS: CREATININE 4.5 MG/DL (0.6-1.3)
[2017-09-03 14:00] VITALS: BP 130/86
[2017-09-03 15:44] VITALS: BP 121/79
[2017-09-03 21:27] VITALS: BP 117/57
[2017-09-04 00:08] VITALS: BP 111/58
[2017-09-04 08:02] VITALS: BP 115/79
[2017-09-04 12:57] LABS: C DIFF TOXIN POSITIVE (NEGATIVE)
[2017-09-04 16:30] VITALS: BP 112/56
[2017-09-04 23:59] VITALS: BP 127/58
[2017-09-05 08:11] LABS: BASOPHIL (%) 0.2 % (0-1); EOSINOPHIL (%) 0.5 % (0-5); EOSINOPHIL COUNT 0.1 K/uL (0-0.3); HEMATOCRIT 35.4 % (38.0-50.0); HEMOGLOBIN 11.6 G/DL (12.5-16.6); IMMATURE GRANULOCYTE (%) 0.5 % (0.0-0.7); LYMPHOCYTE (%) 15.9 % (15-42); MCH 34.3 PG (29.0-34.0); MCHC 32.8 G/DL (30.0-36.0); MCV 104.7 FL (86-99); MONOCYTE (%) 7.9 % (3-12); NEUTROPHIL COUNT 9.5 K/uL (1.8-6.4); NRBC (%) 0.2 /100 WBC (0-0); PLATELET COUNT 338 K/uL (156-360); RED BLOOD COUNT 3.38 M/uL (4.00-5.50); WHITE BLOOD COUNT 12.7 K/uL (4.1-10.2)
[2017-09-05 08:43] LABS: ALBUMIN 2.7 G/DL (3.2-4.8); CHLORIDE 102 MEQ/L (99-109); CREATININE 4.6 MG/DL (0.6-1.3); GFR ESTIMATE (CALCULATED) 13 mL/min/ (58.99-99999); GLUCOSE 167 mg/dL (70-99); PHOSPHORUS 4.9 mg/dL (2.5-4.9); POTASSIUM 2.4 MEQ/L (3.7-5.4); SODIUM 136 MEQ/L (136-147); UREA NITROGEN (BUN) 31 mg/dL (9-23)
[2017-09-05 15:31] VITALS: BP 124/59
[2017-09-06 00:40] VITALS: BP 133/62
[2017-09-06 06:52] LABS: ALBUMIN 2.6 G/DL (3.2-4.8); CHLORIDE 105 MEQ/L (99-109); GFR ESTIMATE (CALCULATED) 17 mL/min/ (58.99-99999); GLUCOSE 122 mg/dL (70-99); PHOSPHORUS 3.6 mg/dL (2.5-4.9); POTASSIUM 2.6 MEQ/L (3.7-5.4); SODIUM 138 MEQ/L (136-147); UREA NITROGEN (BUN) 22 mg/dL (9-23); VANCOMYCIN, TROUGH 18.1 MCG/ML (10-20)
[2017-09-06 06:57] LABS: CREATININE 3.6 MG/DL (0.6-1.3)
[2017-09-06 08:08] VITALS: BP 105/55
[2017-09-06 15:29] VITALS: BP 110/56
[2017-09-06 23:46] VITALS: BP 128/55
[2017-09-07 06:52] LABS: ALBUMIN 2.8 G/DL (3.2-4.8); CHLORIDE 106 MEQ/L (99-109); GFR ESTIMATE (CALCULATED) 11 mL/min/ (58.99-99999); GLUCOSE 120 mg/dL (70-99); PHOSPHORUS 4.8 mg/dL (2.5-4.9); POTASSIUM 2.9 MEQ/L (3.7-5.4); SODIUM 138 MEQ/L (136-147)
[2017-09-07 06:55] LABS: CREATININE 5.1 MG/DL (0.6-1.3); UREA NITROGEN (BUN) 37 mg/dL (9-23)
[2017-09-07 07:39] VITALS: BP 105/53
[2017-09-08 00:27] VITALS: BP 110/72
[2017-09-08 05:13] LABS: BASOPHIL (%) 0.2 % (0-1); EOSINOPHIL (%) 0.4 % (0-5); EOSINOPHIL COUNT 0.1 K/uL (0-0.3); HEMATOCRIT 34.8 % (38.0-50.0); HEMOGLOBIN 11.7 G/DL (12.5-16.6); IMMATURE GRANULOCYTE (%) 0.7 % (0.0-0.7); LYMPHOCYTE (%) 15.5 % (15-42); LYMPHOCYTE COUNT 2.2 K/uL (1.0-2.8); MCH 34.7 PG (29.0-34.0); MCHC 33.6 G/DL (30.0-36.0); MCV 103.3 FL (86-99); MONOCYTE (%) 7.9 % (3-12); MONOCYTE COUNT 1.1 K/uL (0-0.8); NEUTROPHIL (%) 75.3 % (45-76); NEUTROPHIL COUNT 10.6 K/uL (1.8-6.4); NRBC (%) 0.1 /100 WBC (0-0); PLATELET COUNT 369 K/uL (156-360); RBC DIS.WIDTH-SD 57.5 % (39-53); RED BLOOD COUNT 3.37 M/uL (4.00-5.50); WHITE BLOOD COUNT 14.1 K/uL (4.1-10.2)
[2017-09-08 06:18] LABS: CHLORIDE 107 MEQ/L (99-109); GFR ESTIMATE (CALCULATED) 9 mL/min/ (58.99-99999); GLUCOSE 124 mg/dL (70-99); POTASSIUM 2.8 MEQ/L (3.7-5.4); SODIUM 140 MEQ/L (136-147); UREA NITROGEN (BUN) 47 mg/dL (9-23)
[2017-09-08 06:22] LABS: CREATININE 6.3 MG/DL (0.6-1.3)
[2017-09-08 16:12] VITALS: BP 112/59
[2017-09-08 21:47] VITALS: BP 109/54
[2017-09-09 06:22] LABS: BASOPHIL (%) 0.2 % (0-1); EOSINOPHIL (%) 0.4 % (0-5); EOSINOPHIL COUNT 0.1 K/uL (0-0.3); HEMATOCRIT 34.3 % (38.0-50.0); HEMOGLOBIN 11.4 G/DL (12.5-16.6); IMMATURE GRANULOCYTE (%) 0.5 % (0.0-0.7); LYMPHOCYTE (%) 17.4 % (15-42); LYMPHOCYTE COUNT 2.1 K/uL (1.0-2.8); MCH 34.5 PG (29.0-34.0); MCHC 33.2 G/DL (30.0-36.0); MCV 103.9 FL (86-99); MONOCYTE (%) 8.9 % (3-12); MONOCYTE COUNT 1.1 K/uL (0-0.8); NEUTROPHIL (%) 72.6 % (45-76); NEUTROPHIL COUNT 8.8 K/uL (1.8-6.4); NRBC (%) 0.2 /100 WBC (0-0); PLATELET COUNT 320 K/uL (156-360); RBC DIS.WIDTH-CV 15.4 % (11.8-14.6); RBC DIS.WIDTH-SD 58.4 % (39-53); WHITE BLOOD COUNT 12.1 K/uL (4.1-10.2)
[2017-09-09 06:47] LABS: CHLORIDE 107 MEQ/L (99-109); CREATININE 4.3 MG/DL (0.6-1.3); GFR ESTIMATE (CALCULATED) 14 mL/min/ (58.99-99999); GLUCOSE 147 mg/dL (70-99); POTASSIUM 2.9 MEQ/L (3.7-5.4); SODIUM 141 MEQ/L (136-147); UREA NITROGEN (BUN) 26 mg/dL (9-23)
[2017-09-09 07:26] VITALS: BP 106/46
[2017-09-09 16:00] VITALS: BP 118/58
[2017-09-10 00:05] VITALS: BP 127/60
[2017-09-10 07:46] VITALS: BP 118/60
[2017-09-10 09:06] LABS: BASOPHIL (%) 0.2 % (0-1); EOSINOPHIL (%) 0.4 % (0-5); EOSINOPHIL COUNT 0.1 K/uL (0-0.3); HEMATOCRIT 32.5 % (38.0-50.0); HEMOGLOBIN 10.9 G/DL (12.5-16.6); IMMATURE GRANULOCYTE (%) 0.7 % (0.0-0.7); LYMPHOCYTE (%) 16.9 % (15-42); MCH 34.4 PG (29.0-34.0); MCHC 33.5 G/DL (30.0-36.0); MCV 102.5 FL (86-99); MONOCYTE (%) 9.3 % (3-12); MONOCYTE COUNT 1.1 K/uL (0-0.8); NEUTROPHIL (%) 72.5 % (45-76); NEUTROPHIL COUNT 8.7 K/uL (1.8-6.4); PLATELET COUNT 332 K/uL (156-360); RBC DIS.WIDTH-CV 15.5 % (11.8-14.6); RBC DIS.WIDTH-SD 58.2 % (39-53); RED BLOOD COUNT 3.17 M/uL (4.00-5.50)
[2017-09-10 09:19] LABS: CHLORIDE 106 MEQ/L (99-109); POTASSIUM 2.8 MEQ/L (3.7-5.4); SODIUM 137 MEQ/L (136-147)
[2017-09-10 09:25] LABS: CREATININE 5.6 MG/DL (0.6-1.3); GFR ESTIMATE (CALCULATED) 10 mL/min/ (58.99-99999); GLUCOSE 213 mg/dL (70-99); UREA NITROGEN (BUN) 42 mg/dL (9-23)
[2017-09-10] MEDS ORDERED: Zeasorb Antifungal T TP (11:40)
[2017-09-10] MEDS ORDERED: NOVOLOG 10100 UNITS/ SC (11:40)
[2017-09-10] MEDS ORDERED: VANCOMYCIN HCL125 MG PO (11:41)
[2017-09-10] MEDS ORDERED: K-DUR20 MEQ PO (11:55)
== END 2017-09-10 16:32 | DRG 177 ==
LOC: EME 11:50 → 2EAST 18:16 → 4WEST 18:16 → EDOF 18:16 → ENRESERV 18:28 → 4WEST 19:53 → ENRESERV 08-30 09:59 → 2EAST 08-30 12:36
PROVIDERS: Emergency Medicine; Family Medicine; Internal Medicine Nephrology; Specialist
PROC: 0W9930Z Drainage of Right Pleural Cavity with Drainage Device, Percutaneous Approach (ICD-10-PCS; principal; 2017-08-28)
PROC: 5A09357 Assistance with Respiratory Ventilation, Less than 24 Consecutive Hours, Continuous Positive Airway Pressure (ICD-10-PCS; 2017-08-28)
PROC: 5A1D70Z Performance of Urinary Filtration, Intermittent, Less than 6 Hours Per Day (ICD-10-PCS; 2017-08-29)
DX: J69.0 Pneumonitis due to inhalation of food and vomit (principal); J96.01 Acute respiratory failure with hypoxia; J90 Pleural effusion, not elsewhere classified; L03.115 Cellulitis of right lower limb; A04.72 Enterocolitis due to Clostridium difficile, not specified as recurrent; I13.2 Hypertensive heart and chronic kidney disease with heart failure and with stage 5 chronic kidney disease, or end stage renal disease; E11.22 Type 2 diabetes mellitus with diabetic chronic kidney disease; N18.6 End stage renal disease; I50.32 Chronic diastolic (congestive) heart failure; E87.6 Hypokalemia; R13.10 Dysphagia, unspecified; Z99.2 Dependence on renal dialysis; Z66 Do not resuscitate; D63.1 Anemia in chronic kidney disease; E11.42 Type 2 diabetes mellitus with diabetic polyneuropathy; I48.2 Chronic atrial fibrillation; N40.0 Benign prostatic hyperplasia without lower urinary tract symptoms; M48.00 Spinal stenosis, site unspecified; Z85.6 Personal history of leukemia; Z87.891 Personal history of nicotine dependence; Z89.422 Acquired absence of other left toe(s)
CPT/HCPCS: 32557; 36600; 71045; 71250; 74230; 80048; 80053; 80069; 80202; 81003; 82945; 82948; 83605; 83615; 83615 91; 83735; 83880; 83986 90; 84100; 84157; 84484; 85025; 85027; 87040; 87070; 87075; 87077; 87086; 87116; 87186; 87205; 87206; 87493; 87641; 88108; 88305; 89051; 92526 GN; 92610 GN; 92611 GN; 93005; 93971; 94002; 94003; 94760; 94799; 99281; 99285; A6214; C1729; C1769; J1644; J1815; J2543; J3370; J7050; P9047; S0028